=== PATIENT | male | born 1960 | race Caucasian/White ===

== ENCOUNTER → 2021-07-16 11:35 | Outpatient (BNVA) | payer MEDICARE, SELFPAY | PROVIDERS: Visit Provider Family Medicine | DX: E78.5 Hyperlipidemia, unspecified (principal); E11.40 Type 2 diabetes mellitus with diabetic neuropathy, unspecified; G25.81 Restless legs syndrome; M25.511 Pain in right shoulder; M25.512 Pain in left shoulder; I10 Essential (primary) hypertension; M54.16 Radiculopathy, lumbar region | CPT/HCPCS: 80053; 80061; 83036; 83735 ==

== ENCOUNTER → 2021-10-06 10:23 | Outpatient (BNVA) | payer MEDICARE, SELFPAY | PROVIDERS: PCP Family Medicine; Visit Provider Family Medicine | DX: E11.40 Type 2 diabetes mellitus with diabetic neuropathy, unspecified (principal); G25.81 Restless legs syndrome; E11.42 Type 2 diabetes mellitus with diabetic polyneuropathy; E78.2 Mixed hyperlipidemia; M54.16 Radiculopathy, lumbar region; H26.9 Unspecified cataract | CPT/HCPCS: 80053; 80061; 83036 ==

== ENCOUNTER → 2022-01-13 09:26 | Outpatient (BNVA) | payer MEDICARE, SELFPAY | PROVIDERS: PCP Family Medicine; Visit Provider Family Medicine | DX: E11.9 Type 2 diabetes mellitus without complications (principal); R25.2 Cramp and spasm; G25.81 Restless legs syndrome; E11.40 Type 2 diabetes mellitus with diabetic neuropathy, unspecified; M54.16 Radiculopathy, lumbar region; M25.511 Pain in right shoulder; M25.512 Pain in left shoulder; E11.42 Type 2 diabetes mellitus with diabetic polyneuropathy | CPT/HCPCS: 73030; 80048; 83036 ==

== ENCOUNTER → 2022-02-25 09:31 | Outpatient (BNVA) | payer MEDICARE, SELFPAY | PROVIDERS: PCP Family Medicine; Referring Provider Family Medicine; Visit Provider Orthopaedic Surgery | DX: M25.511 Pain in right shoulder (principal); M25.512 Pain in left shoulder | CPT/HCPCS: 99204 ==

== ENCOUNTER 2022-04-08 16:25 | Outpatient (CLI) | payer MEDICARE, SELFPAY ==
--- NOTE | 2022-04-08 16:45 | MR_ITS ---
WS: [id number] MRI RIGHT SHOULDER HISTORY: pain COMPARISON: Radiograph 01/13/2022 TECHNIQUE: Multiplanar sequences of the shoulder joint are submitted. Moderate AC joint arthritis. AC joint is narrowed with osteophytes encroaching upon the supraspinatus myotendinous insertion. Osteophytes are deforming small insertion site tear supraspinatus the muscle and tendon. There is only a small amount of edema along the AC ligament. No significant subacromial impingement. Biceps tendon is in the bicipital groove. No os acromion. Mild narrowing of the glenohumeral joint. There is a small amount of edema in the supraspinatus muscl e where the clavicular osteophyte causes mild encroachment. There is additional very small partial te ar involving the insertion site of the supraspinatus. Moderate tendinopathy distal supraspinatus tend on but no additional tears. Normal infraspinatus tendon. Subscapularis tendon is intact but there is coracohumeral encroachment and mild tendinopathy in the distal subscapularis. Well-circumscribed osseous lesion measuring 14 mm. Probably an enchondroma. No adjacent fluid or antoinette a. No labral tear identified. MR/MR shoulder RT wo con* [id number] IMPRESSION: 1. Moderate AC joint arthritis. Mild AC joint encroachment upon the myotendino us region of the supraspinatus. 2. Small focal insertion site tear supraspinatus tendon with additional moder ate tendinopathy in the more proximal tendon. 3. Moderate narrowing of the coracohumeral interval encroaching upon the subsc apularis tendon with tendinopathy.
== END 2022-04-08 16:26 | disposition home or self-care (01) ==
PROVIDERS: PCP Family Medicine; Visit Provider Orthopaedic Surgery
DX: M12.819 Other specific arthropathies, not elsewhere classified, unspecified shoulder (principal)
CPT/HCPCS: 73221

== ENCOUNTER → 2022-04-14 15:25 | Outpatient (BNVA) | payer MEDICARE, SELFPAY | PROVIDERS: PCP Family Medicine; Visit Provider Orthopaedic Surgery | DX: E11.40 Type 2 diabetes mellitus with diabetic neuropathy, unspecified (principal); M75.01 Adhesive capsulitis of right shoulder; M54.16 Radiculopathy, lumbar region; E11.9 Type 2 diabetes mellitus without complications; M25.511 Pain in right shoulder; M25.512 Pain in left shoulder; H60.92 Unspecified otitis externa, left ear; G25.81 Restless legs syndrome; E11.42 Type 2 diabetes mellitus with diabetic polyneuropathy; H65.92 Unspecified nonsuppurative otitis media, left ear; H81.22 Vestibular neuronitis, left ear; Z79.84 Long term (current) use of oral hypoglycemic drugs | CPT/HCPCS: 83036; 99213 ==

== ENCOUNTER 2022-04-21 06:00 | Outpatient (RCR) | payer MEDICARE, SELFPAY | END 2022-04-28 23:59 | disposition home or self-care (01) | LOC: MPT 06:00 | PROVIDERS: PCP Family Medicine; Visit Provider Orthopaedic Surgery | DX: M75.01 Adhesive capsulitis of right shoulder (principal) | CPT/HCPCS: 97161 ==

== ENCOUNTER → 2022-07-14 09:44 | Outpatient (BNVA) | payer MEDICARE, SELFPAY | PROVIDERS: PCP Family Medicine; Visit Provider Family Medicine | DX: E11.42 Type 2 diabetes mellitus with diabetic polyneuropathy (principal); M25.511 Pain in right shoulder; M25.512 Pain in left shoulder; M54.16 Radiculopathy, lumbar region; G25.81 Restless legs syndrome | CPT/HCPCS: 80048; 83036 ==

== ENCOUNTER → 2022-09-11 12:56 | Outpatient (BNVA) | payer MEDICARE, SELFPAY | PROVIDERS: PCP Family Medicine; Visit Provider Surgery | DX: R13.10 Dysphagia, unspecified (principal); Z12.11 Encounter for screening for malignant neoplasm of colon; Z86.010 Personal history of colon polyps | CPT/HCPCS: 99024; 99203 ==

== ENCOUNTER 2022-10-09 07:23 | Day surgery (SDC) | payer MEDICARE, SELFPAY ==
[2022-10-07 12:32] VITALS: BMI 23.9
[2022-10-09 07:44] VITALS: BP 181/107; PULSE 66; RESP 16; TEMP 36.4; O2SAT 98
--- NOTE | 2022-10-09 07:57 | P.ANESASSM_ITS ---
Pre-Anesthetic Assessment Height/Weight: Height 1.78 m Weight 75.75 kg Temp Pulse Resp BP Pulse Ox O2 Del Method 97.5 F L 66 16 181/107 98 Room Air 10/09/22 07:44 10/09/22 07:44 10/09/22 07:44 10/09/22 07:44 10/09/22 07:44 10/09/22 07:44 Operation Date: 10/09/22 08:30 Proposed Procedures p 27672 egd w/balloon dial z86.010,z12.11,r13.10(Not Applicable) - Gaurav Bright DO Familial anesthetic complications: None Was Beta Martha taken within 24 hours: N/A Was Clonidine taken within 24 hours: N/A Last intake: Intake Last Liquid Date 10/08/22 Social No alcohol and No tobacco Exam alert, oriented x 3, clear to auscultation bilaterally and regular rate & rhythm Airway Mallampati: Class I Dentition: false CV/HEM Coronary Artery Disease (stent > 1year ago) Achievement of > 4 METS limited by back and hip pain Metabolic Diabetes Mellitus Anesthetic Plan ASA status: 3 Anesthesia: MAC Risk of > 500 ml blood loss (7ml/kg in children): No Medications/Allergies Home Medications Medication Instructions Recorded Confirmed Last Taken Type cbd cream 1 applic topical PRN PRN Pain 07/16/21 10/08/22 10/07/22 History lancets #100 ea 07/16/21 10/07/22 Unknown Rx blood sugar diagnostic (Blood #50 ea 04/14/22 10/07/22 Unknown Rx Glucose Test strips) blood-glucose meter (Blood Glucose #1 ea 04/14/22 10/07/22 Unknown Rx Monitoring kit) atorvastatin 10 mg tablet 10 mg PO DAILY 30 days #30 tabs 07/14/22 10/09/22 10/07/22 Rx baclofen 10 mg tablet 10 mg PO .at bedtime PRN muscle 07/14/22 10/09/22 10/07/22 Rx cramps 30 days #30 tabs diclofenac sodium 75 mg 75 mg PO BID PRN pain 30 days #60 07/14/22 10/07/22 10/07/22 Rx tablet,delayed release tabs oxycodone-acetaminophen 5 mg-325 1 tab PO DAILY PRN pain 30 days 07/14/22 10/09/22 10/08/22 Rx mg tablet #30 tabs pregabalin 100 mg capsule (Lyrica) 100 mg PO BID 30 days #60 caps 07/14/2210/07/22 Rx ropinirole 1 mg tablet 1 mg PO .at bedtime 30 days #30 07/14/22 10/07/22 10/07/22 Rx tabs dapagliflozin 5 mg tablet (Farxiga) 5 mg PO DAILY 30 days #30 tabs 08/24/22 10/07/22 10/07/22 Rx glipizide 10 mg tablet, extended 10 mg PO DAILY 10/07/22 10/09/22 10/08/22 History release 24 hr metformin 500 mg tablet,extended 1,500 mg PO DAILY 10/07/22 10/09/22 10/08/22 History release 24 hr Allergies Allergy/AdvReac Type Severity Reaction Status Date / Time No Known Allergies Allergy Verified 10/07/22 12:34 [facility] Anesthesia Medical History (Updated 09/11/22 @ 14:09 by Gaurav Bright DO) Fracture of third cervical vertebra Fracture, scapula Hx of seizure disorder Surgical History (Updated 09/11/22 @ 14:09 by Gaurav Bright DO) Hx of colonoscopy less than 10 years, polyps were found Hx of hernia repair Social History Smoking and tobacco status: former smoker Alcohol intake: current Alcohol intake frequency: other Alcohol type: beer Substance/Drug Use: current Substance/Drug use frequency: daily service: Yes status: Retired branch: [employer] Anesthesia Cardiac Studies: No Data to Display
[2022-10-09] MEDS: sodium chloride 0.9% 1,000 ML 30 ML IV (08:00)
[2022-10-09] MEDS: insulin regular-human 10 UNIT in SYRINGE 1 EACH IVP (08:25)
[2022-10-09 08:30] LABS: Glucose Point of Care 304 mg/dL (70-110)
--- NOTE | 2022-10-09 08:38 | W.PM.OPSUD ---
Surgery/Procedure H&P Update DATE OF PROCEDURE: October 09, 2022 DATE H&P PERFORMED: 09/11/22 H&P UPDATE INFORMATION: I have reviewed H&P completed within last 30 days, I have examined patient prior to procedure and Changes to prior documentation as noted here CHANGES TO PREVIOUS DOCUMENTATION: EGD with possible balloon dilation and colonoscopy will be performed PLANNED PROCEDURE: Operation Date: 10/09/22 08:30 Proposed Procedures p [id number] egd w/balloon dial z86.010,z12.11,r13.10(Not Applicable) - Gaurav Bright DO
--- NOTE | 2022-10-09 08:53 | SUR.OPER ---
Balloon dilation 18, 19, 20
[2022-10-09 09:02] VITALS: BP 90/58; PULSE 55; RESP 20; TEMP 36.4; O2SAT 97
[2022-10-09 09:20] VITALS: BP 70/53; PULSE 57; RESP 18; O2SAT 97
--- NOTE | 2022-10-09 09:30 | ANE.PACU2 ---
Inpatient post-anesthesia follow up: Airway intact: Yes Vital signs: Temperature 97.5 F Pulse Rate 63 Respiratory Rate 16 Blood Pressure 112/90 Pulse Oximetry 97 Oxygen Delivery Me thod Room Air Oxygen Flow Rate 3 Fraction of Inspir ed Oxygen Hydration adequate: Yes Nausea and vomiting: No Pain level: 1 Mental status: Baseline
[2022-10-09 09:35] VITALS: BP 112/64; PULSE 60; RESP 16; O2SAT 98
[2022-10-09 09:39] LABS: Glucose Point of Care 198 mg/dL (70-110)
[2022-10-09 09:51] VITALS: BP 112/90; PULSE 63; RESP 16; O2SAT 97
== END 2022-10-09 09:59 | disposition home or self-care (01) ==
PROVIDERS: PCP Family Medicine; Visit Provider Surgery
DX: R13.10 Dysphagia, unspecified (principal); I25.10 Atherosclerotic heart disease of native coronary artery without angina pectoris; Z95.5 Presence of coronary angioplasty implant and graft; E11.9 Type 2 diabetes mellitus without complications; Z79.84 Long term (current) use of oral hypoglycemic drugs; Z79.891 Long term (current) use of opiate analgesic; Z87.891 Personal history of nicotine dependence; Z53.20 Procedure and treatment not carried out because of patient's decision for unspecified reasons
CPT/HCPCS: 36416; 43239; 43249; 82962; 88305; 88342; J1815; J2704; J7030

== ENCOUNTER → 2022-10-13 08:48 | Outpatient (BNVA) | payer MEDICARE, SELFPAY | PROVIDERS: PCP Family Medicine; Visit Provider Family Medicine | DX: Z00.00 Encounter for general adult medical examination without abnormal findings (principal); E11.9 Type 2 diabetes mellitus without complications; Z12.5 Encounter for screening for malignant neoplasm of prostate; Z12.2 Encounter for screening for malignant neoplasm of respiratory organs; Z87.891 Personal history of nicotine dependence; Z71.89 Other specified counseling; Z53.20 Procedure and treatment not carried out because of patient's decision for unspecified reasons; Z28.21 Immunization not carried out because of patient refusal; E78.2 Mixed hyperlipidemia; M54.16 Radiculopathy, lumbar region; R13.10 Dysphagia, unspecified; Z91.199 Patient's noncompliance with other medical treatment and regimen due to unspecified reason | CPT/HCPCS: 80053; 80061; 83036; G0103 ==

== ENCOUNTER → 2022-10-30 15:44 | Outpatient (BNVA) | payer MEDICARE, SELFPAY | PROVIDERS: PCP Family Medicine; Visit Provider Surgery | DX: Z09 Encounter for follow-up examination after completed treatment for conditions other than malignant neoplasm (principal) | CPT/HCPCS: 99212 ==

== ENCOUNTER → 2023-03-10 13:41 | Outpatient (BNVA) | payer MEDICARE, SELFPAY | PROVIDERS: PCP Family Medicine; Visit Provider Family Medicine | DX: E11.40 Type 2 diabetes mellitus with diabetic neuropathy, unspecified (principal); I10 Essential (primary) hypertension; M54.16 Radiculopathy, lumbar region; M25.511 Pain in right shoulder; M25.512 Pain in left shoulder; G89.4 Chronic pain syndrome; F19.20 Other psychoactive substance dependence, uncomplicated; E11.42 Type 2 diabetes mellitus with diabetic polyneuropathy; G89.29 Other chronic pain; M54.12 Radiculopathy, cervical region | CPT/HCPCS: 80048; 83036 ==

== ENCOUNTER 2023-05-06 09:24 | Outpatient (CLI) | payer MEDICARE, SELFPAY ==
--- NOTE | 2023-05-06 09:28 | MR_ITS ---
WS: [id number] MRI CERVICAL SPINE NONCONTRAST HISTORY: RADICULOPATHY, CERVICAL REGION/SPONDYLOSIS COMPARISON: None available. Technique: Multiplanar, multisequence noncontrast imaging of the cervical spine. Normal cervical alignment. Mild disc space narrowing and desiccation. Osteophytosis at all levels. No acute fracture. No marrow edema. Signal within the cervical cord is normal. Visualized posterior fossa is unremarkable. Craniocervical junction, C1 and C2 relationship, odontoid process and soft tissues are normal. C2-C3: Mild osteophytosis. Mild motion artifact. No stenosis is evident. C3-C4: Mild osteophytic ridging, annular disc bulging and facet arthritis. Mild central and moderate bilateral foraminal stenosis. C4-C5: Mild diffuse annular disc bulging with osteophytic ridging and facet arthritis. Small central disc protrusion. Mild central and bilateral foraminal stenosis. C5-C6: Mild diffuse annular disc bulging with osteophytic ridging and facet arthritis. Mild central a nd bilateral foraminal stenosis. C6-C7: Osteophytic ridging and mild disc bulging. Mild facet arthritis. Very mild central and foramin al stenosis. C7-T1: Mild osteophytic ridging. No stenosis. Paraspinal soft tissue are normal. IMPRESSION: 1. Multilevel mild to moderate cervical spondylosis. 2. Quality is suboptimal by motion artifact. 3. Mild central and bilateral foraminal stenosis from C3-4 through C6-7. No high-grade central steno sis. Foraminal stenosis at C3-4 is moderate. 4. Additional small central disc protrusion at C4-5 contributing to the stenosis. 5. Facet joint arthropathy throughout the cervical spine. No acute fracture.
== END 2023-05-06 09:25 | disposition home or self-care (01) ==
LOC: RAD 09:24
PROVIDERS: PCP Family Medicine; Visit Provider Registered Nurse
DX: M47.22 Other spondylosis with radiculopathy, cervical region (principal); M50.30 Other cervical disc degeneration, unspecified cervical region; M48.02 Spinal stenosis, cervical region
CPT/HCPCS: 72141

== ENCOUNTER → 2023-07-14 09:02 | Outpatient (BNVA) | payer MEDICARE, SELFPAY | PROVIDERS: PCP Family Medicine; Visit Provider Family Medicine | DX: E11.40 Type 2 diabetes mellitus with diabetic neuropathy, unspecified (principal); K21.9 Gastro-esophageal reflux disease without esophagitis; E11.9 Type 2 diabetes mellitus without complications; E11.42 Type 2 diabetes mellitus with diabetic polyneuropathy; M25.511 Pain in right shoulder; M25.512 Pain in left shoulder; R25.2 Cramp and spasm; M54.16 Radiculopathy, lumbar region; E78.2 Mixed hyperlipidemia | CPT/HCPCS: 80053; 80061; 83036; 83721; 85025 ==

== ENCOUNTER → 2023-10-12 11:15 | Outpatient (BNVA) | payer MEDICARE, SELFPAY | PROVIDERS: PCP Family Medicine; Visit Provider Family Medicine | DX: E11.42 Type 2 diabetes mellitus with diabetic polyneuropathy (principal) | CPT/HCPCS: 80053; 83036 ==

== ENCOUNTER 2023-11-29 11:11 | Observation (INO) | payer MEDICARE, SELFPAY ==
[2023-11-29] VITALS (7 sets, daily range): BP systolic 128–154; BP diastolic 71–107; PULSE 63–90; RESP 15–18; TEMP 36.4–36.8; O2SAT 92–98
--- NOTE | 2023-11-29 11:32 | CT_ITS ---
WS: [id number] CT ANGIOGRAM CEREBRAL AND CAROTID ARTERIES HISTORY: cva TECHNIQUE: CT angiogram is performed of the carotid and cerebral arteries. During arterial injection imaging is obtained from the skull vertex to the aortic arch in 1.25 mm imaging. Coronal and sagittal reformats are submitted. Additional multi planar reformats of the carotid and cerebral arteries are submitted, MIP imaging also reviewed. NASCET criteria utilized. [facility] at least one of these dose optimization techniques: automated exposure control; mA and/or kV adjust ment per patient size (includes targeted exams where dose is matched to clinical indication); or iter ative reconstruction. CONTRAST: Omnipaque 350; 100 mL IV. DLP: 562.62 mGy.cm COMPARISON: None available. Carotid Angiogram: Right carotid: Common carotid artery: Small amount calcified plaque at the origin of the RIGHT common carotid artery with mild stenosis suspected. Artifact from the contrast obscuring quantification of the stenosis. R emaining cervical carotid arteries patent. Increasing plaque towards the bifurcation. 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 External carotid artery: Patent. Left carotid: Common carotid artery: Small amount of plaque at the origin of the LEFT common carotid artery. Remain ing cervical carotid arteries intact. Increasing plaque towards the bifurcation. Internal carotid artery: There is a mixture of calcified plaque and intimal thickening at the bifurc ation. Proximal LEFT ICA is dilated to 1.3 cm. There is a mixture of calcified plaque and a large johnny unt of intraluminal thrombus. High-grade stenosis involving the proximal LEFT ICA with small plaque u lcerations. LEFT increasing thrombus and stenosis at the skull base. Nearly occluded LEFT ICA at the skull base. Additional narrowing through the cavernous carotid artery. External carotid artery: Patent. Right vertebral artery: Small amount of plaque at the origin. Increasing plaque through the foramen m agnum with moderate stenosis. Left vertebral artery: High-grade stenosis at the origin of the LEFT vertebral artery. Very tiny allyssa kofi LEFT vertebral artery with complete occlusion distally. Subclavian arteries: Thrombus and luminal irregularity involving the subclavian arteries. The arterie s appear to be intact. Upper thorax: Centrilobular emphysema. Frothy secretions in the trachea. Extensive atherosclerotic pl aque through the aortic arch. Soft plaque with erosions at the arch. Thyroid gland: Normal. Osseous structures: Advanced cervical spondylosis. CEREBRAL ANGIOGRAM: Intracranial vertebral arteries: Distal RIGHT vertebral artery is nearly occluded just prior to the b ifurcation. LEFT vertebral artery distally is completely occluded. Basilar artery: Patent. Intracranial Internal carotid arteries: Completely occluded RIGHT cervical carotid artery with recons titution noted in the supraclinoid carotid artery via an intact [place]. Beyond the skull ba se LEFT ICA returns to a more normal caliber but there is plaque and multifocal areas of luminal sten osis. Dense calcification through the cavernous carotid. Middle cerebral arteries: RIGHT middle cerebral artery is reconstituted via an intact [place] s. Small caliber RIGHT MCA. There is a paucity of vessels in the distal MCA territory at the site of the subacute infarct. Mild atherosclerosis LEFT M1 segment but intact. Anterior cerebral arteries and ACOM: There is narrowing and a small amount of plaque involving the RI GHT M1 segment with a stenosis involving the junction of the RIGHT MCA. Posterior cerebral arteries and PCOM's: Very small caliber bilateral posterior cerebral arteries. Sma ll caliber posterior communicating arteries. RIGHT P2 and P1 segments are very small caliber. Dural venous sinuses are normally enhancing. Mastoid air cells: Normal. Paranasal sinuses: Normal. Calvarium: Normal. CT/CT angio headneck* [id number] IMPRESSION: 1. 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 Reconstitutes in the supraclinoid carotid artery. 2. Increasing plaque and dilatation of the proximal LEFT ICA, dilated to 1.3 c m. High-grade stenosis proximal LEFT ICA with plaque and ulcerations. Stenosis greater than 70%. 3. LEFT ICA is nearly completely occluded at the skull base. Additional high-g rade stenosis through the cavernous sinus. 4. Moderate stenosis distal RIGHT vertebral artery beyond the foramen magnum. 5. High-grade stenosis origin of the LEFT vertebral artery. Distal LEFT verteb ral artery is completely occluded. 6. RIGHT MCA is patent due to an intact [place]. There is a significa nt stenosis involving the RIGHT A1 segment with the RIGHT MCA. RIGHT posterior communicating artery is still patent. 7. Paucity of vessels in the distal RIGHT MCA territory at the site of subacut e infarct. This is beyond the M2 segment. Abrupt termination of the distal MCA artery best seen on the MIP imaging. 8. Very small caliber posterior cerebral arteries. 9. Irregular plaque with ulcerations involving the aortic arch.
--- NOTE | 2023-11-29 11:32 | CT_ITS ---
WS: [id number] CT HEAD NONCONTRAST HISTORY: cva TECHNIQUE: Contiguous axial imaging performed through the brain in 2.5 mm imaging. Bone and soft tiss ue windows. Sagittal and coronal reformats reviewed. All CT scans at [facility] use at least one of these dose optimization techniques: automated exposure control; mA and/or kV adjustment per pa tient size (includes targeted exams where dose is matched to clinical indication); or iterative recon struction. DLP: 1125.38 mGy.cm COMPARISON: None available. No acute intracranial hemorrhage. Focal area of decreased attenuation in the RIGHT centrum semiovale and thompson radiata may be a subacute infarct. Otherwise there is mild atrophy and small vessel diseas e. No atrophy or prior infarcts or herniation. Posterior fossa is negative. Ventricles: Normal size with no hydrocephalus. No inferior displacement of the cerebellar tonsils. Paranasal sinuses: As visualized are clear. Mastoid air cells: Well pneumatized. Calvarium and scalp: Skull is intact with no soft tissue edema or swelling. Extensive calcified plaque visualized in the distal vertebral and intracranial carotid arteries. CT/CT head wo con* [id number] IMPRESSION: 1. No acute intracranial hemorrhage or mass effect. 2. Probable subacute infarct RIGHT centrum semiovale/thompson radiata. 3. Extensive atherosclerotic plaque in the distal vertebral and intracranial c arotid arteries.
--- NOTE | 2023-11-29 11:32 | XR_ITS ---
WS: [id number] Exam: XR chest 1V portable [id number] Date/Time of Exam: 11/29/2023 11:39 AM Reason For Exam: cva No priors. The lungs are fully inflated and clear. Normal cardiomediastinal silhouette. No pleural effusions. Re gional bony structures are intact. Several old right-sided rib fractures noted. XR/XR chest 1V portable [id number] IMPRESSION: 1. No acute cardiopulmonary finding.
--- NOTE | 2023-11-29 11:33 | ED_ITS ---
HPI - Altered Mental Status 2 General: Chief Complaint: Altered Mental Status Stated Complaint: stroke like symptoms Time Seen by Provider: 11/29/23 11:23 Source: patient Mode of arrival: ambulatory Limitations: no limitations History of Present Illness: 63-year-old male states for the last 3 d ays has had strokelike symptoms. He states that he had left-sided weakness some slurred speech confusion family states he has not really been able to take care of himself. She does have some left-sided facial droop as well no history of stroke in the past. Related Data Home Medications Medication Instructions Recorded Confirmed pen needle, diabetic 32 gauge x 11/29/23 11/29/2332 (BD Ultra-Fine Brigit Pen Needle) Previous Rx's Medication Instructions Recorded blood-glucose meter (Blood Glucose #1 ea 04/14/22 Monitoring kit) alcohol swabs 1 pad topical TID PRN as needed to 10/13/22 check blood sugar 30 days #100 ea insulin syringe-needle U-100 0.5 #100 ea 07/14/23 mL 29 gauge x 1/2 (BD Insulin Syringe) lancets (Accu-Chek Softclix #100 ea 08/28/23 Lancets) blood sugar diagnostic (Accu-Chek #50 strips 09/14/23 Guide test strips) baclofen 10 mg tablet 10 mg PO .at bedtime PRN muscle 10/12/23 cramps 30 days #30 tabs diclofenac sodium 75 mg 75 mg PO BID PRN pain 30 days #60 10/12/23 tablet,delayed release tabs glipizide 10 mg tablet, extended 10 mg PO DAILY 90 days #90 tabs 10/12/23 release 24 hr insulin aspart U-100 100 unit/mL 5 unit (0.05 mL) SUBCUT TID #15 mL 10/12/23 (3 mL) subcutaneous pen (Novolog FlexPen U-100 Insulin aspart) insulin glargine 100 unit/mL (3 50 unit (0.5 mL) SUBCUT DAILY 30 10/12/23 mL) subcutaneous pen (Lantus days #15 mL Solostar U-100 Insulin) metformin 500 mg tablet,extended 1,500 mg (3 x 500 mg) PO DAILY 90 10/12/23 release 24 hr days #270 tabs pregabalin 100 mg capsule 100 mg PO BID 30 days #60 caps 10/12/23 oxycodone-acetaminophen 5 mg-325 1 tab PO DAILY PRN pain 30 days 10/14/23 mg tablet #30 tabs pen needle, diabetic 32 gauge x #100 ea 11/11/2303/04 (TechLITE Pen Needle) Allergies Allergy/AdvReac Type Severity Reaction Status Date / Time No Known Allergies Allergy Verified 10/12/23 10:41 Review of Systems 2 Const: Denies: fever(s), chills, body aches or change in appetite Eyes: Denies: eye discomfort ENMT: Denies: throat pain or dental pain Card: Denies: chest pain Resp: Denies: dyspnea GI: Denies: abdominal pain, nausea, vomiting or diarrhea Musc: Denies: neck pain or back pain Skin/Breast: Denies: rash Neuro: Reports: weakness in extremities, difficulty walking, confusion and Slurred speech present; Denies: headache(s) PFSH ED 2 PFSH: Medical History Hx of seizure disorder Fracture, scapula Fracture of third cervical vertebra Surgical History Hx of colonoscopy less than 10 years, polyps were found Hx of hernia repair Social History Smoking and tobacco/nicotine status: former use of tobacco/nicotine Alcohol intake: current Alcohol intake frequency: other Alcohol type: beer Substance/Drug Use: current Substance/Drug use frequency: daily service: Yes status: Retired branch: [employer] Physical Exam 2 Const: COMMON NORMALS: patient oriented x3 HENMT: COMMON NORMALS: normocephalic and atraumatic HEAD & SCALP: n ormocephalic and atraumatic Eye: COMMON NORMALS: Equal, round and reactive pupils present and EOMs intact bilaterally PUPIL: Yes Equal, round and reactive pupils present Neck/C-Spine: COMMON NORMALS: full ROM and supple Chest: COMMONS NORMALS: normal inspection of the chest Resp: COMMON NORMALS: normal respiratory effort Cardio: COMMON NORMALS: regular rate, regular rhythm and No murmurs present (Cardio) RATE: regular rate RHYTHM: regular rhythm Extremity: COMMON NORMALS: normal to inspection and full ROM Neuro: COMMON NORMALS: patient oriented x3 OTHER: Some left-sided weakness with left-sided facial droop Psych: COMMON NORMALS: mental status grossly normal, Normal thought process present and cooperative THOUGHT PROCESS: Normal thought process present Skin: COMMON NORMALS: no rashes or lesions noted and no wounds GENERAL SKIN EXAM: no rashes or lesions noted Course 2 Vital Signs: Vital signs: Vital Signs Temperature 98.1 F 11/29/23 11:24 Pulse Rate 73 11/29/23 11:50 Respiratory Rate 16 11/29/23 11:50 Blood Pressure 143/93 11/29/23 11:50 Pulse Oximetry 93 11/29/23 11:50 Oxygen Delivery Me thod Room Air 11/29/23 11:50 MDM - Altered Mental Status Medical Decision Making Patient presents here with stroke likely on Wednesday. Its on his last known normal was he not a thrombectomy or a lytic candidate due to time I spoke to the hospitalist will admit at this time. Medical Records I reviewed the patient's medical records. Lab Data I reviewed the patient's lab results. 11/29/23 12:04 11/29/23 12:04 Radiology Impressions Chest X-Ray 11/29/23 11:32 IMPRESSION: 1. No acute cardiopulmonary finding. Head CT 11/29/23 11:32 IMPRESSION: 1. No acute intracranial hemorrhage or mass effect. 2. Probable subacute infarct RIGHT centrum semiovale/thompson radiata. 3. Extensive atherosclerotic plaque in the distal vertebral and intracranial carotid arteries. Head/Neck CTA 11/29/23 11:32 IMPRESSION: 1. 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 Reconstitutes in the supraclinoid carotid artery. 2. Increasing plaque and dilatation of the proximal LEFT ICA, dilated to 1.3 cm. High-grade stenosis proximal LEFT ICA with plaque and ulcerations. Stenosis greater than 70%. 3. LEFT ICA is nearly completely occluded at the skull base. Additional high- grade stenosis through the cavernous sinus. 4. Moderate stenosis distal RIGHT vertebral artery beyond the foramen magnum. 5. High-grade stenosis origin of the LEFT vertebral artery. Distal LEFT vertebral artery is completely occluded. 6. RIGHT MCA is patent due to an intact native of [place]. There is a significant stenosis involving the RIGHT A1 segment with the RIGHT MCA. RIGHT posterior communicating artery is still patent. 7. Paucity of vessels in the distal RIGHT MCA territory at the site of subacute infarct. This is beyond the M2 segment. Abrupt termination of the distal MCA artery best seen on the MIP imaging. 8. Very small caliber posterior cerebral arteries. 9. Irregular plaque with ulcerations involving the aortic arch. Laboratory Results WBC 7.12 10^3/uL (3.29-11.43) 11/29/23 12:04 RBC 5.13 10^6/uL (3.85-5.65) 11/29/23 12:04 Hgb 14.90 g/dL (11.27-16.99) 11/29/23 12:04 Hct 44.6 % (37-53) 11/29/23 12:04 MCV 86.9 fl (82-101) 11/29/23 12:04 MCH 29.0 pg (27-33) 11/29/23 12:04 MCHC 33.4 g/dL (30-55) 11/29/23 12:04 RDW 13.6 % (12.1-15.1) 11/29/23 12:04 Plt Count 193 10^3/cmm (157-399) 11/29/23 12:04 MPV 10.7 fL (7.4-10.4) H 11/29/23 12:04 Neut % (Auto) 64.5 % 11/29/23 12:04 Lymph % (Auto) 25.8 % 11/29/23 12:04 Hendry % (Auto) 7.9 % 11/29/23 12:04 Eos % (Auto) 1.0 % 11/29/23 12:04 Baso % (Auto) 0.4 % 11/29/23 12:04 Neut # (Auto) 4.59 10^3/uL (1.8-7.7) 11/29/23 12:04 Lymph # (Auto) 1.8 10^3/uL (0.8-4.8) 11/29/23 12:04 Hendry # (Auto) 0.6 10^3/uL (0.2-0.9) 11/29/23 12:04 Eos # (Auto) 0.1 10^3/uL (0.0-0.8) 11/29/23 12:04 Baso # (Auto) 0.0 10^3/uL (0.0-0.1) 11/29/23 12:04 Nucleated RBC % (auto) 0 % 11/29/23 12:04 Nucleated RBCs # 0.0 /100WBC 11/29/23 12:04 PT 14.00 SECONDS (12.1-14.9) 11/29/23 12:04 INR 1.04 (0.8-1.2) 11/29/23 12:04 Sodium 137 mmol/L (136-145) 11/29/23 12:04 Potassium 4.4 mmol/L (3.5-5.1) 11/29/23 12:04 Chloride 102 mmol/L (98-107) 11/29/23 12:04 Carbon Dioxide 25 mmol/L (22-29) 11/29/23 12:04 Anion Gap 14.4 (5-19) 11/29/23 12:04 BUN 22 mg/dL (8-23) 11/29/23 12:04 Creatinine 0.9 mg/dL (0.7-1.2) 11/29/23 12:04 GFR Calculation 85.2 mL/min (90-130) L 11/29/23 12:04 Glucose 290 mg/dL (65-115) H 11/29/23 12:04 Calculated Osmolality 298 mOsm/kg (285-295) H 11/29/23 12:04 Calcium 8.7 mg/dL (8.5-10.5) 11/29/23 12:04 Total Bilirubin 0.4 mg/dL (0.15-1.2) 11/29/23 12:04 AST 11 U/L (0-40) 11/29/23 12:04 ALT 13 U/L (0-41) 11/29/23 12:04 Alkaline Phosphatase 67 U/L (40-130) 11/29/23 12:04 Total Protein 7.3 g/dL (6.6-8.7) 11/29/23 12:04 Albumin 4.1 g/dL (3.5-5.2) 11/29/23 12:04 Globulin 3.2 g/dL (1.3-4.6) 11/29/23 12:04 All radiology interpretation(s) finalized by discharge EKG Data EKG 1: I personally reviewed and interpreted this EKG as follows: EKG interpretation date: 11/29/23 EKG interpretation time: 11:47 Interpretation: nsr hr [address] elevation qrs 97 qtc 389 Discharge Plan Discharge Patient Disposition: Admitted As Inpatient Clinical Impression: CVA (cerebral vascular accident) Condition: Stable Prescriptions: No Action (DME) insulin syringe-needle U-100 [BD Insulin Syringe] 0.5 mL 29 gauge x 1/2 syringe See Rx Instructions .Route Qty: 100 5RF Rx Instructions: Use with insulin twice daily pregabalin 100 mg capsule 100 mg PO BID 30 Days Qty: 60 5RF baclofen 10 mg tablet 10 mg PO .at bedtime PRN (Reason: muscle cramps) 30 Days Qty: 30 6RF diclofenac sodium 75 mg tablet,delayed release (DR/EC) 75 mg PO BID PRN (Reason: pain) 30 Days Qty: 60 6RF Rx Instructions: WITH FOOD; do not take with IBU/ALEVE glipizide 10 mg tablet extended release 24hr 10 mg PO DAILY 90 Days Qty: 90 2RF insulin glargine [Lantus Solostar U-100 Insulin] 100 unit/mL (3 mL) insulin pen 50 unit SUBCUT DAILY 30 Days Qty: 15 6RF Rx Instructions: 340B insulin aspart U-100 [Novolog FlexPen U-100 Insulin] 100 unit/mL (3 mL) insulin pen 5 unit SUBCUT TID Qty: 15 6RF Rx Instructions: 340B metformin 500 mg tablet extended release 24 hr 1,500 mg PO DAILY 90 Days Qty: 270 2RF (DME) blood-glucose meter [Blood Glucose Monitoring] Kit See Rx Instructions .ROUTE .MEDSUPPLY Qty: 1 0RF Rx Instructions: Brand/type per insurance coverage alcohol swabs Pads, Medicated 1 pad topical TID PRN (Reason: as needed to check blood sugar) 30 Days Qty: 100 11RF (DME) lancets [Accu-Chek Softclix Lancets] Misc See Rx Instructions .ROUTE .COMPLEX Qty: 100 11RF Dose Instruction: USE TO TEST BLOOD GLUCOSE TWICE A DAY Rx Instructions: USE TO TEST BLOOD GLUCOSE TWICE A DAY (DME) Accu-Chek Guide test strips Strip See Rx Instructions .ROUTE .COMPLEX Qty: 50 11RF Dose Instruction: USE TO TEST BLOOD GLUCOSE TWICE A DAY Rx Instructions: USE TO TEST BLOOD GLUCOSE TWICE A DAY oxycodone-acetaminophen 5-325 mg tablet 1 tab PO DAILY PRN (Reason: pain) 30 Days Qty: 30 0RF (DME) pen needle, diabetic [TechLITE Pen Needle] 32 gauge x 1/4 needle See Rx Instructions .ROUTE .COMPLEX Qty: 100 2RF Dose Instruction: USE WITH INSULIN PEN TO ADMINISTER INSULIN DIRECTED BY DOCTOR TWICE DAILY Rx Instructions: USE WITH INSULIN PEN TO ADMINISTER INSULIN DIRECTED BY DOCTOR TWICE DAILY (DME) BD Ultra-Fine Birgit Pen Needle 32 gauge x 5/32 needle MISCELLANEOUS Referrals: Gale Ocasio MD [Primary Care Provider] - Patient Instructions: Altered Mental Status (ED) Coding Level of Care Code 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
--- NOTE | 2023-11-29 11:47 | ECG_ITS ---
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 Measurements Intervals [place] Rate: 70 P: 37 WY: 165 QRS: -28 QRSD: 97 T: 85 QT: 369 QTc: 399 Interpretive Statements SINUS RHYTHM BORDERLINE LEFT AXIS DEVIATION [QRS AXIS < -20] NONSPECIFIC T-WAVE ABNORMALITY No previous ECG available for comparison Electronically Signed On 11-29-2023 18:43:10 CDT by Daniel Amos M.D. [email or web address] county medical [email or web address] health system [id number]
[2023-11-29 12:12] LABS: Basophils % 0.4 %; Eosinophils # 0.1 10^3/uL (0.0-0.8); Hematocrit 44.6 % (37-53); Lymphocytes # 1.8 10^3/uL (0.8-4.8); Lymphocytes % 25.8 %; Mean Corpuscular HGB Conc 33.4 g/dL (30-55); Mean Corpuscular Volume 86.9 fl (82-101); Mean Platelet Volume 10.7 fL (7.4-10.4); Monocytes # 0.6 10^3/uL (0.2-0.9); Monocytes % 7.9 %; Neutrophils # 4.59 10^3/uL (1.8-7.7); Neutrophils % 64.5 %; Nucleated Red Blood Cells % 0 %; Platelet Count 193 10^3/cmm (157-399); Red Blood Count 5.13 10^6/uL (3.85-5.65); Red Cell Distribution Width 13.6 % (12.1-15.1); White Blood Count 7.12 10^3/uL (3.29-11.43)
[2023-11-29 12:30] LABS: INR 1.04 (0.8-1.2)
[2023-11-29 12:35] LABS: Alanine Aminotransferase 13 U/L (0-41); Albumin Level 4.1 g/dL (3.5-5.2); Alkaline Phosphatase 67 U/L (40-130); Anion Gap 14.4 (5-19); Aspartate Amino Transferase 11 U/L (0-40); Blood Urea Nitrogen 22 mg/dL (8-23); Calcium 8.7 mg/dL (8.5-10.5); Carbon Dioxide 25 mmol/L (22-29); Chloride 102 mmol/L (98-107); Globulin 3.2 g/dL (1.3-4.6); Glomerular Filtration Rate 85.2 mL/min (90-130); Glucose 290 mg/dL (65-115); Osmolality Calculated 298 mOsm/kg (285-295); Potassium 4.4 mmol/L (3.5-5.1); Sodium 137 mmol/L (136-145); Total Bilirubin 0.4 mg/dL (0.15-1.2); Total Protein 7.3 g/dL (6.6-8.7)
[2023-11-29] MEDS: iohexol 350 mg/mL 500 mL Btl (per mL) IV (12:50)
[2023-11-29] MEDS: aspirin 81 mg Chew Tablet 324 MG PO (14:12)
--- NOTE | 2023-11-29 14:36 | PM.HP ---
Providers/Chief Complaint Admitting Physician: Nicole Horn MD Primary Care Provider: Gale Ocasio MD Chief Complaint: stroke like symptoms History of Present Illness Michael Oreilly is a 63 year old male who presented to the emergency room today at the insistence of his with complaints of speech abnormalities, left-sided weakness, left-sided facial droop, difficulty walking and dropping things and typing gibberish that he did not recognize his gibberish. Symptom onset began Wednesday with facial droop and left-sided weakness. His encouraged him to come in repeatedly but he declined. Yesterday he was not able to hold a glass of milk and it seems like that was what finally got him to agree to coming in. He has no prior history of known strokes but in talking with his Heather who can be reached at [phone], he has been having complaints of dizziness and confusion intermittently for several years. Maybe 6 years ago he had a brief introduction to methamphetamine when they lived in [place]. He used a significant amount in a short period of time with some adverse experiences. He has since quit smoking, drinking or using any kind of drugs. He has had a marijuana card previously but no longer utilizes it. He has had some chronic neck and back pain along with shoulder pain related to a prior fall in which he sustained spinal compression fractures and a scapular fracture. He is on once daily oxycodone and scheduled Lyrica with as needed baclofen. He has been referred to pain clinic in [place] but did not have an optimal experience there. He is now going to be seeing Dr. Baca though that appointment is not scheduled until December. In addition to musculoskeletal pain he has diabetic nerve pain in both of his legs that is a concern for him. With that neuropathy he has numbness in both lower extremities and upper extremities in a stocking and glove distribution up. Currently sensation is decreased on the left compared to the right from what his baseline sensation is. The pain in his right leg is currently more prominent than the pain in his left leg which is a change for him. He says he feels like he is suddenly stupid since Wednesday and that he is not able to type or find the letters that he wants on the keyboard. He also has difficulty reading type letters at times. He has difficulty remembering things. He has had some dizziness but no falls the last few days. He leans to the left when he tries to walk. He is not able to hold anything in his left hand steadily. No reports of any difficulty swallowing. He initially had some loss of vision in his right eye but it has returned though is not as good as the vision in his left eye presently. His noted a left-sided facial droop. Again all of his symptoms began on Wednesday, November 25 with mild progression over the weekend. No known family history of strokes. He is known to have hyperlipidemia but he has not been taking statin therapy. He also has a history of hypertension. He has had previous cardiac stent. No recent chest pain. He is a known diabetic. he is being admitted to the hospital service for further evaluation, monitoring and initiation of treatment. Review of Systems General: Reports: Other (ROS as per HPI or as otherwise noted here) Const: Denies: fever(s) Eyes: Reports: change in vision (right eye); Denies: photophobia, eye discomfort or floaters ENMT: Reports: other (no drooling); Denies: throat pain Card: Denies: chest pain, swelling of feet/ankles or dyspnea on exertion Resp: Denies: dyspnea GI: Reports: constipation; Denies: dysphagia, change in bowel habits or hematochezia : Denies: difficulty urinating or hematuria Musc: Reports: neck pain (not new but overdue for shot in neck and pain worsening on right side), back pain (not new) and extremity pain (not new at shoulders and both legs, left sife not as prominent as usual) Neuro: Reports: headache(s), numbness in extremities, weakness in extremities, sensory changes, lack of coordination, difficulty walking, dizziness, confusion, Slurred speech present, difficulty communicating thoughts (especially with typing) and restless legs; Denies: seizure-like activity or involuntary movements Taj/Lymph: Denies: easy bruising or easy bleeding Medications/Allergies Home Medications Medication Instructions Recorded Confirmed Last Taken Type blood-glucose meter (Blood Glucose #1 ea 04/14/22 11/29/23 Unknown Rx Monitoring kit) alcohol swabs 1 pad topical TID PRN as needed to 10/13/22 11/29/23 11/28/23 Rx check blood sugar 30 days #100 ea insulin syringe-needle U-100 0.5 #100 ea 07/14/23 11/29/23 Unknown Rx mL 29 gauge x 1/2 (BD Insulin Syringe) lancets (Accu-Chek Softclix #100 ea 08/28/23 11/29/23 Unknown Rx Lancets) blood sugar diagnostic (Accu-Chek #50 strips 09/14/23 11/29/23 Unknown Rx Guide test strips) baclofen 10 mg tablet 10 mg PO .at bedtime PRN muscle 10/12/23 11/29/23 11/28/23 Rx cramps 30 days #30 tabs diclofenac sodium 75 mg 75 mg PO BID PRN pain 30 days #60 10/12/23 11/29/23 11/28/23 Rx tablet,delayed release tabs glipizide 10 mg tablet, extended 10 mg PO DAILY 90 days #90 tabs 10/12/23 11/29/23 11/28/23 Rx release 24 hr insulin aspart U-100 100 unit/mL 5 unit (0.05 mL) SUBCUT TID #15 mL 10/12/23 11/29/23 11/28/23 Rx (3 mL) subcutaneous pen (Novolog FlexPen U-100 Insulin aspart) insulin glargine 100 unit/mL (3 50 unit (0.5 mL) SUBCUT DAILY 30 10/12/23 11/29/23 11/28/23 Rx mL) subcutaneous pen (Lantus days #15 mL Solostar U-100 Insulin) metformin 500 mg tablet,extended 1,500 mg (3 x 500 mg) PO DAILY 90 10/12/23 11/29/23 11/28/23 Rx release 24 hr days #270 tabs pregabalin 100 mg capsule 100 mg PO BID 30 days #60 caps 10/12/23 11/29/23 11/28/23 Rx oxycodone-acetaminophen 5 mg-325 1 tab PO DAILY PRN pain 30 days 10/14/23 11/29/23 11/28/23 Rx mg tablet #30 tabs pen needle, diabetic 32 gauge x #100 ea 11/11/23 11/29/23 Unknown Rx 1/4 (TechLITE Pen Needle) pen needle, diabetic 32 gauge x 11/29/23 11/29/23 Unknown History (BD Ultra-Fine Birgit Pen Needle) Allergies Allergy/AdvReac Type Severity Reaction Status Date / Time No Known Allergies Allergy Verified 08/13/24 10:41 PFSH Acute PFSH: Medical History (Updated 11/29/23 @ 22:28 by Nicole Horn MD) Cervical spondylolysis CAD (coronary artery disease) Erectile dysfunction history of injections, not on oral medications Chronic neck pain Chronic kidney disease Restless leg syndrome Diabetic neuropathy History of colon polyps GERD (gastroesophageal reflux disease) Hyperlipemia Type 2 diabetes mellitus Unable to afford Farxiga Hypertension Hx of seizure disorder Fracture, scapula Fracture of third cervical vertebra Surgical History (Updated 11/29/23 @ 21:49 by Nicole Horn MD) History of coronary artery stent placement (~2014) done in [facility] History of repair of hiatal hernia needs redone per on 11/29/2023 but has declined Hx of colonoscopy less than 10 years, polyps were found Hx of hernia repair bilateral Social History (Updated 11/29/23 @ 22:00 by Nicole Horn MD) Smoking and tobacco/nicotine status: former use of tobacco/nicotine Alcohol intake: former Substance/Drug Use: former Household members: spouse Marital status: Marital status details: Spouse with MS and partial paralysis service: Yes status: Retired branch: [employer] [place] Vitals/I&O/Wt Last Vital Signs Temp 98.1 F 11/29/23 11:24 Pulse 86 11/29/23 14:16 Resp 16 11/29/23 14:16 BP 143/93 11/29/23 11:50 Pulse Ox 96 11/29/23 14:16 O2 Del Method Room Air 11/29/23 14:16 Physical Exam Narrative: Patient is awake and alert, oriented to person, place and situation. Able to provide much history but some details cannot clarify. Sided facial droop is noted. Extraocular movements are intact. Pupils are reactive bilaterally. moist mucous membranes. Neck is supple, tenderness along the right sternocleidomastoid. No appreciable bruits. Lungs are clear to auscultation bilaterally. Cardiovascular exam reveals a regular rate and rhythm. No murmurs. Abdomen soft, nontender, positive bowel sounds. Extremities no pitting edema in the pretibial area. Tenderness to palpation noted right lower extremity to palpation circumferentially but most prominent posteriorly, more notable than the left. Sensation is decreased to light touch both hands and feet with left more so than right. Left hand library media specialist weaker than right hand library media specialist. Slight drift noted of left upper extremity. No drift noted to the left lower extremity. Gait is not currently assessed but has ataxia of the left upper extremity. Skin is dry. No bruising areas noted. Data 11/29/23 12:04 11/29/23 12:04 Other Labs: Radiology Impressions Chest X-Ray 11/29/23 11:32 IMPRESSION: 1. No acute cardiopulmonary finding. Head CT 11/29/23 11:32 IMPRESSION: 1. No acute intracranial hemorrhage or mass effect. 2. Probable subacute infarct RIGHT centrum semiovale/thompson radiata. 3. Extensive atherosclerotic plaque in the distal vertebral and intracranial carotid arteries. Head/Neck CTA 11/29/23 11:32 IMPRESSION: 1. 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 Reconstitutes in the supraclinoid carotid artery. 2. Increasing plaque and dilatation of the proximal LEFT ICA, dilated to 1.3 cm. High-grade stenosis proximal LEFT ICA with plaque and ulcerations. Stenosis greater than 70%. 3. LEFT ICA is nearly completely occluded at the skull base. Additional high-grade stenosis through the cavernous sinus. 4. Moderate stenosis distal RIGHT vertebral artery beyond the foramen magnum. 5. High-grade stenosis origin of the LEFT vertebral artery. Distal LEFT vertebral artery is completely occluded. 6. RIGHT MCA is patent due to an intact [place] of [place]. There is a significant stenosis involving the RIGHT A1 segment with the RIGHT MCA. RIGHT posterior communicating artery is still patent. 7. Paucity of vessels in the distal RIGHT MCA territory at the site of subacute infarct. This is beyond the M2 segment. Abrupt termination of the distal MCA artery best seen on the MIP imaging. 8. Very small caliber posterior cerebral arteries. 9. Irregular plaque with ulcerations involving the aortic arch. Laboratory Results WBC 7.12 10^3/uL (3.29-11.43) 11/29/23 12:04 RBC 5.13 10^6/uL (3.85-5.65) 11/29/23 12:04 Hgb 14.90 g/dL (11.27-16.99) 11/29/23 12:04 Hct 44.6 % (37-53) 11/29/23 12:04 MCV 86.9 fl (82-101) 11/29/23 12:04 MCH 29.0 pg (27-33) 11/29/23 12:04 MCHC 33.4 g/dL (30-55) 11/29/23 12:04 RDW 13.6 % (12.1-15.1) 11/29/23 12:04 Plt Count 193 10^3/cmm (157-399) 11/29/23 12:04 MPV 10.7 fL (7.4-10.4) H 11/29/23 12:04 Neut % (Auto) 64.5 % 11/29/23 12:04 Lymph % (Auto) 25.8 % 11/29/23 12:04 [place] % (Auto) 7.9 % 11/29/23 12:04 Eos % (Auto) 1.0 % 11/29/23 12:04 Baso % (Auto) 0.4 % 11/29/23 12:04 Neut # (Auto) 4.59 10^3/uL (1.8-7.7) 11/29/23 12:04 Lymph # (Auto) 1.8 10^3/uL (0.8-4.8) 11/29/23 12:04 Norton # (Auto) 0.6 10^3/uL (0.2-0.9) 11/29/23 12:04 Eos # (Auto) 0.1 10^3/uL (0.0-0.8) 11/29/23 12:04 Baso # (Auto) 0.0 10^3/uL (0.0-0.1) 11/29/23 12:04 Nucleated RBC % (auto) 0 % 11/29/23 12:04 Nucleated RBCs # 0.0 /100WBC 11/29/23 12:04 PT 14.00 SECONDS (12.1-14.9) 11/29/23 12:04 INR 1.04 (0.8-1.2) 11/29/23 12:04 Sodium 137 mmol/L (136-145) 11/29/23 12:04 Potassium 4.4 mmol/L (3.5-5.1) 11/29/23 12:04 Chloride 102 mmol/L (98-107) 11/29/23 12:04 Carbon Dioxide 25 mmol/L (22-29) 11/29/23 12:04 Anion Gap 14.4 (5-19) 11/29/23 12:04 BUN 22 mg/dL (8-23) 11/29/23 12:04 Creatinine 0.9 mg/dL (0.7-1.2) 11/29/23 12:04 GFR Calculation 85.2 mL/min (90-130) L 11/29/23 12:04 Glucose 290 mg/dL (65-115) H 11/29/23 12:04 Calculated Osmolality 298 mOsm/kg (285-295) H 11/29/23 12:04 Calcium 8.7 mg/dL (8.5-10.5) 11/29/23 12:04 Total Bilirubin 0.4 mg/dL (0.15-1.2) 11/29/23 12:04 AST 11 U/L (0-40) 11/29/23 12:04 ALT 13 U/L (0-41) 11/29/23 12:04 Alkaline Phosphatase 67 U/L (40-130) 11/29/23 12:04 Total Protein 7.3 g/dL (6.6-8.7) 11/29/23 12:04 Albumin 4.1 g/dL (3.5-5.2) 11/29/23 12:04 Globulin 3.2 g/dL (1.3-4.6) 11/29/23 12:04 A&P Assessment and plan (1) CVA (cerebral vascular accident): Subacute CVA presenting outside of the window for thrombolytic therapy or invasive intervention. He was not taking antiplatelet therapy or statin therapy at home although both have been previously prescribed. Risk factors include diabetes that is suboptimally controlled, hypertension not currently on treatment, dyslipidemia with high LDL not on treatment. He previously smoked cigarettes and had a very brief period of time that he smoked methamphetamine as well approximately 6 years ago. No known personal history of prior strokes but has had episodes of dizziness and confusion off and on for the last 6 to 8 years. NIHSS on my examination is 6. Observation admission for now Serial neuroexams Check echocardiogram I spoke with Dr. Hopper regarding findings on CTA of the head and the neck and the acute symptoms patient is presenting with. Not a candidate for any acute management or intervention but she will see the patient in follow-up. Current recommendations are for aspirin, Plavix, statin therapy, stroke education Dysphagia screening completed at bedside PT, OT and speech evaluations ordered VTE prophylaxis Qualifiers: CVA mechanism: thrombosis Laterality of affected vessel: right Precerebral and cerebral artery: middle cerebral artery Qualified Code(s): I63.311 - Cerebral infarction due to thrombosis of right middle cerebral artery (2) Hypertension: Longstanding diagnosis of hypertension. Review of prior vital sign record shows significant variability. Currently patient is not on any specific treatment for hypertension. Suspect some of the variability is in part related to pain control. Currently with suboptimal blood pressures upon presentation 150s over 100s. Outside of initial permissive hypertension window we usually bryan. More recent blood pressures 140s over 90s. Consider initiation of antihypertensive regimen after monitoring blood sugars a bit longer Qualifiers: Hypertension type: primary hypertension Qualified Code(s): I10 - Essential (primary) hypertension (3) Hyperlipemia: Mixed hyperlipidemia with elevated triglycerides and total cholesterol along with elevated LDL and low HDL. Cholesterol/HDL ratio in June of this year was 10.13 which is significantly elevated. Patient quit taking statin therapy on his own feeling like he was taking too many medications that cost too much money. Initiate statin therapy Qualifiers: Hyperlipidemia type: mixed hyperlipidemia Qualified Code(s): E78.2 - Mixed hyperlipidemia (4) Type 2 diabetes mellitus: Insulin requiring with hyperglycemia and peripheral neuropathy along with chronic kidney disease stage II. Chronically on insulin glargine and insulin aspartate along with metformin and glipizide. Hemoglobin A1c on October 11 was 9.1. 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 No recent chest pain though reports that he at times says my heart hurts . Monitor for symptoms suggesting angina Qualifiers: Associated angina: without angina Coronary Disease-Associated Artery/Lesion type: [place] artery [place] vs. transplanted heart: [place] heart Qualified Code(s): I25.10 - Atherosclerotic heart disease of [place] coronary artery without angina pectoris (6) Chronic kidney disease: Stage II with GFR 85. Reports urinary symptoms recently but urinalysis is still pending. Monitor intake and renal function Follow-up pending urinalysis Qualifiers: Chronic kidney disease stage: stage 2 (mild) Qualified Code(s): N18.2 - Chronic kidney disease, stage 2 (mild) (7) GERD (gastroesophageal reflux disease): With a history of hiatal hernia previously repaired in need of redo per Will add PPI Qualifiers: Esophagitis presence: without esophagitis Qualified Code(s): K21.9 - Gastro-esophageal reflux disease without esophagitis (8) Chronic neck pain: Chronically on once daily oxycodone along with scheduled Lyrica andas needed baclofen Continue usual home medication regimen for pain control Plan VTE prophylaxis: Lovenox GI Prophylaxis: PPI Antibiotics: none Pending studies: echo, a1c, lipid panel, urinalysis Telemetry: ordered to monitor for arrhythmia Maldonado: not currently indicated Line(s): peripheral IVs Disposition plan: Home with outpatient follow up to include outpatient PT, OT, Speech anticipated along with follow up to neurology and PCP. Transportation to appointment with Neurology may be a challenge for patient secondary to stroke and 's medical limitations Code Status: Full Code Supportive care otherwise Findings, concerns and plans were discussed with patient and as well as his , both individually as she was at home, in depth and they were both given an opportunity to ask questions Attestations Medical Necessity Statement*: Currently anticipate a stay less than two midnights currently in this patient presenting with subacute stroke outside of window for thrombolytic therapy or invasive intervention acutely. He has not had previous stroke. He has extensive vascular findings on CTA of the head and neck. At high risk for additional thrombotic events. He is being initiated on antiplatelet therapy, statin therapy and receiving therapy evaluations for optimization of care going forward. Coding Level of Care Code 73590 High Time for a total of 90 minutes, includes reviewing past or interval history, examining/interviewing patient, placing orders, counseling patient/family/other support (discussed with patient and then with at patient request), discussing plan of care with staff, communicating with other healthcare providers and documenting encounter Diagnoses Cerebrovascular accident (CVA) due to thrombosis of right middle cerebral artery I63.311 CVA mechanism: thrombosis Laterality of affected vessel: right Precerebral and cerebral artery: middle cerebral artery Primary hypertension I10 Hypertension type: primary hypertension Mixed hyperlipidemia E78.2 Hyperlipidemia type: mixed hyperlipidemia Type 2 diabetes mellitus with diabetic polyneuropathy, without long-term current use of insulin E11.42 Diabetes mellitus complication detail: with polyneuropathy Diabetes mellitus complication status: with neurologic complications Diabetes mellitus termite technician insulin use: without penitentiary use Coronary artery disease involving [place] coronary artery of [place] heart without angina pectoris I25.10 Associated angina: without angina Coronary Disease-Associated Artery/Lesion type: [place] artery [place] vs. transplanted heart: [place] heart Stage 2 chronic kidney disease N18.2 Chronic kidney disease stage: stage 2 (mild) Gastroesophageal reflux disease without esophagitis K21.9 Esophagitis presence: without esophagitis Chronic neck pain M54.2; G89.29 NIH stroke score NIHSS Level Of Consciousness - 1a: 0 Level Of Consciousness Questions - 1b: Both Correct Level Of Consciousness Commands - 1c: Both Correct Best Gaze - 2: Normal Visual [place] - 3: Partial Hemianopia Facial Palsy - 4: Minor Paralysis Motor Arm Right - 5: No Drift Motor Arm Left - 5: Drift Motor Leg Right - 6: No Drift Motor Leg Left - 6: No Drift Limb Ataxia - 7: Present In One Limb Sensory - 8: Mild To Moderate Loss Best Language - 9: No Aphasia Dysarthia - 10: Mild/Moderate Dysarthia Extinction And Inattention - 11: 0 Score Total Score: 6
[2023-11-29 14:45] LABS: Bilirubin Urine Negative (Negative); Blood Urine Negative (Negative); Glucose Urine UA 2+ (Normal); Ketones Urine Negative (Negative); Leukocyte Esterase Urine Negative (Negative); Nitrate Urine Negative (Negative); Protein Urine Negative (Negative); Urine Appearance Clear (CLEAR); Urine Color Yellow (Yellow)
[2023-11-29 14:49] LABS: Add Urine Microscopic? YES; Bacteria Urine None Seen /hpf; Hyaline Casts Urine 1.21 /lpf; RBC Urine 0-2 /hpf (0-2); Squamous Epithelial Cell Urine 0-5 /hpf (0-5); WBC Urine 0-5 /hpf (0-5)
[2023-11-29 14:51] LABS: Amphetamines Screen Urine Negative (Negative); Barbiturates Screen Urine Negative (Negative); Benzodiazepines Screen Urine Negative (Negative); Cocaine Screen Urine Negative (Negative); Opiate Screen Urine Negative (Negative); PCP Screen Urine Negative (Negative); THC Screen Urine Negative (Negative)
[2023-11-29 15:00] LABS: Specific Gravity, Urine 1.063 (1.005-1.030)
--- NOTE | 2023-11-29 15:33 | USCV_ITS ---
Michael Oreilly Age: 63 Gender: M : 1960 Exam Date: 11/29/2023 16:38 Ordering Phys: Nicole Horn MD Technologist: [place] [facility] [place]: cp BP: 130 / 74 HR: 62 Rhythm: Sinus Technical Quality: Adequate MEASUREMENTS (Male / Female) Normal Values 2D ECHO LV Diastolic Diameter PLAX 4.1 cm 4.2 - 5.9 / 3.9 - 5.3 cm IVS Diastolic Thickness 1.0 cm 0.6 - 1.0 / 0.6 - 0.9 cm IVS Systolic Thickness 1.6 cm LVPW Diastolic Thickness 1.1 cm 0.6 - 1.0 / 0.6 - 0.9 cm LVPW Systolic Thickness 1.3 cm LVOT Diameter 2.0 cm LV Ejection Fraction 2D Teich 63.4 % LV Ejection Fraction MOD 4C 55.6 % LV Ejection Fraction MOD 2C 70.0 % LV Ejection Fraction 2C AL 71.1 % LA Diameter 2.1 cm RA Systolic Volume 4C AL 37.2 ml RA Systolic Volume 4C MOD 36.4 ml Aorta at Sinotubular Diameter 2.6 cm M-MODE LA Ao Ratio MM 1.1 AV Cusp Separation MM 2.3 cm DOPPLER AV Peak Velocity 122.0 cm/s LVOT Peak Velocity 96.0 cm/s AV Area Cont Eq vti 2.4 cm squared AV Area Cont Eq pk 2.5 cm squared MV Peak Velocity 85.0 cm/s MV Area PHT 3.0 cm squared Mitral E to A Ratio 1.1 TV Peak Velocity 111.5 cm/s TR Peak Velocity 124.0 cm/s TR Peak Gradient 6.2 mmHg TV Peak E Velocity 91.0 cm/s Right Atrial Pressure 3.0 mmHg Pulmonary Artery Systolic Pressu 9.2 mmHg PV Peak Velocity 117.0 cm/s FINDINGS Left Ventricle Left ventricle is normal in size. LV systolic function is normal with EF of 60 to 65%. No regional wall motion abnormalities are seen. Right Ventricle Normal in size and function Right Atrium Normal in size Left Atrium Normal in size Mitral Valve Structurally normal mitral valve. Trace mitral regurgitation. Aortic Valve Structurally normal aortic valve. No significant stenosis or regurgitation. Tricuspid Valve Insufficient TR jet to calculate RVSP Pulmonic Valve Trace pulmonic regurgitation. Pericardium Normal Aorta Normal in size IVC Not well visualized CONCLUSIONS LV systolic function is normal with EF of 60 to 65%. Trace mitral regurgitation. Trace pulmonic regurgitation. No comparison studies are available Daniel Amos MD (Electronically Signed) Final Date: 30 November 2023 08:59 S
[2023-11-29 17:34] LABS: Glucose Point of Care 175 mg/dL (70-110)
[2023-11-29] MEDS: oxyCODONE-APAP 5-325 mg Tablet 1 TAB PO (17:49)
[2023-11-29] MEDS: insulin lispro 100 unit/1 mL SUBCUT ×2 (17:50→21:27)
[2023-11-29 21:01] LABS: Glucose Point of Care 173 mg/dL (70-110)
[2023-11-29] MEDS: pregabalin 100 mg Capsule PO (21:26)
[2023-11-29] MEDS: atorvastatin 40 mg Tablet PO (21:26)
[2023-11-29] MEDS: sennosides-docusate Tablet 2 TAB PO (23:19)
[2023-11-30] VITALS (10 sets, daily range): BP systolic 131–190; BP diastolic 73–103; PULSE 63–70; RESP 16–20; TEMP 36.3–36.8; O2SAT 94–99
[2023-11-30 05:22] LABS: Estmated Average Glucose 192; Hemoglobin A1C 8.3 % (4.0-6.0)
[2023-11-30 05:30] LABS: Anion Gap 12.2 (5-19); Blood Urea Nitrogen 19 mg/dL (8-23); Calcium 8.5 mg/dL (8.5-10.5); Carbon Dioxide 28 mmol/L (22-29); Chloride 102 mmol/L (98-107); Creatinine Clr Calc Pharmacy 95.0793; Glomerular Filtration Rate 85.2 mL/min (90-130); Glucose 184 mg/dL (65-115); Osmolality Calculated 293 mOsm/kg (285-295); Potassium 4.2 mmol/L (3.5-5.1); Sodium 138 mmol/L (136-145)
[2023-11-30 05:36] LABS: Chol HDL Ratio 9.07 mg/dL (1.0-5.00); Cholesterol 245 mg/dL (0-200); HDL Cholesterol 27 mg/dL (60-100); LDL Cholesterol Calculated 168 mg/dL (50-129); LDL HDL Ratio 6.22 RATIO (0.00-3.22); Triglycerides 248 mg/dL (0-150)
[2023-11-30 06:26] LABS: Glucose Point of Care 221 mg/dL (70-110)
[2023-11-30] MEDS: pregabalin 100 mg Capsule PO ×2 (08:44→21:15)
[2023-11-30] MEDS: aspirin 81 mg EC Tablet PO (08:44)
[2023-11-30] MEDS: sennosides-docusate Tablet 2 TAB PO ×2 (08:44→17:11)
[2023-11-30] MEDS: clopidogrel 75 mg Tablet PO (08:44)
[2023-11-30] MEDS: pantoprazole DR 40 mg Tablet PO (08:45)
[2023-11-30] MEDS: enoxaparin 40 mg/0.4 mL Syringe SUBCUT (08:48)
[2023-11-30] MEDS: insulin glargine 100 units/1 mL 30 UNIT SUBCUT (08:49)
[2023-11-30] MEDS: insulin lispro 100 unit/1 mL SUBCUT ×3 (08:49→21:15)
--- NOTE | 2023-11-30 09:24 | PC.CHAP ---
Pastoral Care Encounter/Spiritual Assessment Type of Contact [] Declined administrative support associate visit [] Patient/Family/Request visit [] Outpatient visit [] Follow-up visit [] Physician referral [] Code/Alert [] Routine visit [] Staff referral [] Actively dying [x] Patient sleeping [] Family support [] [] Out of room [] Palliative care [] [] Receiving care in room [] Pre-surgical visit [] Trauma [] Long length of stay [] ICU visit [] Other: Relational/Emotional Strength [] Patient feels connected with others/family/visitors/staff [] Distress [] Loneliness/isolation [] Abandonment Spirituality of Patient [] Person of [place] [] Attends Christianity of their [place] [] Believes in Prayer [] Reads Bible or Lutheran materials [] There are Spiritual issues to be addressed Double Spindle Shaper Operator Interventions [] Prayer [] Active listening [] Non-anxious presence [] Spiritual/emotional support [] Crisis/trauma care [] Spiritual counseling [] Bereavement support [] Provided bereavement packet [] Provided Bible/devotional materials [] Provided toy/stuffed animal, coloring book to patient or family member [] Provided Communion [] Anointing/[place] [] Salvation [] Completed spiritual assessment [] Other: Impact on Illness or Injury [] Angry [] Fearful [] Anxious [] Often cries [] Exhaustion [] Unable to work [] Unable to attend mandaen [] Unable to walk/stand [] Unable to read [] Unable to drive [] Unable to eat/drink [] Unable to sleep [] Unable to be with family [] Patient intubated [] Other: Summary Time spent with patient
[2023-11-30 11:02] LABS: Glucose Point of Care 219 mg/dL (70-110)
--- NOTE | 2023-11-30 11:53 | P.PN_ITS ---
Subjective 2 Subjective: Patient was seen this morning, he sitting up to the side of the bed, he was seen ambulating the hallways with the help of nursing staff, he has a left facial droop, left upper extremity weakness at about 3 out of 5 he has good left lower extremity strength, does have word finding difficulty, has a flat affect, pupils equal round reactive to light, he denies any pain complaints, no nausea, no vomiting Vitals/I&O/Wt Last Vital Signs Temp 98.3 F 11/30/23 11:34 Pulse 63 11/30/23 11:34 Resp 16 11/30/23 11:34 BP 166/79 11/30/23 11:34 Pulse Ox 95 11/30/23 11:34 O2 Del Method Room Air 11/30/23 11:34 11/29/23 11/30/23 11/30/23 22:59 06:59 14:59 Intake Total 120 / 120 Balance 120 / 120 Weight last 48 hrs Weight 90.537 kg Weight 86.183 kg Physical Exam 2 Const: COMMON NORMALS: no acute distress HENMT: COMMON NORMALS: normocephalic HEAD & SCALP: normocephalic Eye: COMMON NORMALS: Equal, round and reactive pupils present PUPIL: Yes Equal, round and reactive pupils present Resp: COMMON NORMALS: normal respiratory effort, No retractions, No use of accessory muscles and clear to auscultation bilaterally AUSCULTATION: clear to auscultation bilaterally Cardio: COMMON NORMALS: regular rate, regular rhythm, S1 normal heart sound present and S2 normal heart sound present RATE: regular rate RHYTHM: r egular rhythm HEART SOUNDS: S1 normal heart sound present and S2 normal heart sound present GI: COMMON NORMALS: Normal to inspection, nondistended, normoactive bowel sounds present and non-tender Extremity: COMMON NORMALS: no pedal edema Neuro: OTHER: Facial droop ? Left lower extremity strength 5 out of 5 ? Left upper extremity strength 3 out of 5 ? [id number] abnormal on the left, word finding difficulty I- mild slurring of his words Psych: COMMON NORMALS: mental status grossly normal Data 11/29/23 12:04 11/30/23 04:18 A&P Assessment and plan (1) CVA (cerebral vascular accident): - Left-sided deficits -CT head - CT/CT head wo con* [id number] IMPRESSION: 1. No acute intracranial hemorrhage or mass effect. 2. Probable subacute infarct RIGHT centrum semiovale/thompson radiata. 3. Extensive atherosclerotic plaque in the distal vertebral and intracranial carotid arteries. -CTA head and neck CT/CT angio headneck* [id number] IMPRESSION: 1. 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 Reconstitutes in the supraclinoid carotid artery. 2. Increasing plaque and dilatation of the proximal LEFT ICA, dilated to 1.3 cm. High-grade stenosis proximal LEFT ICA with plaque and ulcerations. Stenosis greater than 70%. 3. LEFT ICA is nearly completely occluded at the skull base. Additional high- grade stenosis through the cavernous sinus. 4. Moderate stenosis distal RIGHT vertebral artery beyond the foramen magnum. 5. High-grade stenosis origin of the LEFT vertebral artery. Distal LEFT vertebral artery is completely occluded. 6. RIGHT MCA is patent due to an intact [place]. There is a significant stenosis involving the RIGHT A1 segment with the RIGHT MCA. RIGHT posterior communicating artery is still patent. 7. Paucity of vessels in the distal RIGHT MCA territory at the site of subacute infarct. This is beyond the M2 segment. Abrupt termination of the distal MCA artery best seen on the MIP imaging. 8. Very small caliber posterior cerebral arteries. 9. Irregular plaque with ulcerations involving the aortic arch. -cardiac echo CONCLUSIONS LV systolic function is normal with EF of 60 to 65%. Trace mitral regurgitation. Trace pulmonic regurgitation. No comparison studies are available Plan ? Continue aspirin, statin, Plavix -Continue IV fluids -Permissive Hypertension -neurochecks, aspiration precautions, nih stroke scale -monitor as inpatient -pt/ot -speech therapy Qualifiers: CVA mechanism: thrombosis Laterality of affected vessel: right P recerebral and cerebral artery: middle cerebral artery Qualified Code(s): I 63.311 - Cerebral infarction due to thrombosis of right middle cerebral artery (2) Hypertension: Qualifiers: Hypertension type: primary hypertension Qualified Code(s): I10 - Essential (primary) hypertension (3) Hyperlipemia: Mixed hyperlipidemia with elevated triglycerides and total cholesterol along with elevated LDL and low HDL. Cholesterol/HDL ratio in June of this year was 10.13 which is significantly elevated. Patient quit taking statin therapy on his own feeling like he was taking too many medications that cost too much money. Initiate statin therapy Qualifiers: Hyperlipidemia type: mixed hyperlipidemia Qualified Code(s): E78.2 - Mixed hyperlipidemia (4) Type 2 diabetes mellitus: Insulin requiring with hyperglycemia and peripheral neuropathy along with chronic kidney disease stage II. Chronically on insulin glargine and insulin aspartate along with metformin and glipizide. Hemoglobin A1c on October 11 was 9.1. Continue long and short acting insulin Currently holding metformin secondary to contrast administration Currently holding glipizide secondary to anticipated decreased oral intake during hospital stay Monitor blood sugars adjusting management accordingly Need more optimal diabetes control to decrease risk of recurrent stroke Qualifiers: Diabetes mellitus intermediate frame tender insulin use: without correction use Diabetes mellitus complication status: with neurologic complications Diabetes mellitus complication detail: with polyneuropathy Qualified Code(s): E11.42 - Type 2 diabetes mellitus with diabetic polyneuropathy (5) CAD (coronary artery disease): History of prior coronary stent, details unknown. No recent chest pain though reports that he at times says my heart hurts . Monitor for symptoms suggesting angina Qualifiers: Coronary Disease-Associated Artery/Lesion type: barrow artery [place] vs. transplanted heart: barrow heart Associated angina: without angina Qualified Code(s): I25.10 - Atherosclerotic heart disease of barrow coronary artery without angina pectoris (6) Chronic kidney disease: Stage II with GFR 85. Reports urinary symptoms recently but urinalysis is still pending. Monitor intake and renal function Follow-up pending urinalysis Qualifiers: Chronic kidney disease stage: stage 2 (mild) Qualified Code(s): N18.2 - Chronic kidney disease, stage 2 (mild) (7) GERD (gastroesophageal reflux disease): With a history of hiatal hernia previously repaired in need of redo per Will add PPI Qualifiers: Esophagitis presence: without esophagitis Qualified Code(s): K21.9 - Gastro-esophageal reflux disease without esophagitis (8) Chronic neck pain: Chronically on once daily oxycodone along with scheduled Lyrica andas needed baclofen Continue usual home medication regimen for pain control Plan VTE prophylaxis: Lovenox GI Prophylaxis: PPI Antibiotics: none Pending studies: echo, a1c, lipid panel, urinalysis Telemetry: ordered to monitor for arrhythmia Maldonado: not currently indicated Line(s): peripheral IVs Disposition plan: Home with outpatient follow up to include outpatient PT, OT, Speech anticipated along with follow up to neurology and PCP. Transportation to appointment with Neurology may be a challenge for patient secondary to stroke and 's medical limitations Code Status: Full Code Supportive care otherwise Findings, concerns and plans were discussed with patient and as well as his , both individually as she was at home, in depth and they were both given an opportunity to ask questions Attestations 2 Medical Necessity Statement*: Patient requires hospitalization, inpatient, greater than 2 minutes, for acute CVA residual left-sided deficits Diagnoses Cerebrovascular accident (CVA) due to thrombosis of right middle cerebral artery I63.311 CVA mechanism: thrombosis Laterality of affected vessel: right Precerebral and cerebral artery: middle cerebral artery Primary hypertension I10 Hypertension type: primary hypertension Mixed hyperlipidemia E78.2 Hyperlipidemia type: mixed hyperlipidemia Type 2 diabetes mellitus with diabetic polyneuropathy, without long-term current use of insulin E11.42 Diabetes mellitus intermediate frame tender insulin use: without correction use Diabetes mellitus complication status: with neurologic complications Diabetes mellitus complication detail: with polyneuropathy Coronary artery disease involving barrow coronary artery of barrow heart without angina pectoris I25.10 Coronary Disease-Associated Artery/Lesion type: barrow artery [place] vs. transplanted heart: barrow heart Associated angina: without angina Stage 2 chronic kidney disease N18.2 Chronic kidney disease stage: stage 2 (mild) Gastroesophageal reflux disease without esophagitis K21.9 Esophagitis presence: without esophagitis Chronic neck pain M54.2; G89.29
[2023-11-30] MEDS: sodium chloride 0.9% 1,000 ML 75 ML IV (13:27)
[2023-11-30] MEDS: oxyCODONE-APAP 5-325 mg Tablet 1 TAB PO (15:10)
[2023-11-30 16:35] LABS: Glucose Point of Care 108 mg/dL (70-110)
[2023-11-30 19:42] LABS: Glucose Point of Care 167 mg/dL (70-110)
[2023-11-30] MEDS: atorvastatin 40 mg Tablet PO (21:15)
[2023-11-30 21:25] LABS: Glucose Point of Care 145 mg/dL (70-110)
[2023-12-01] VITALS: BP 115/72; PULSE 63; RESP 16; TEMP 36.6; O2SAT 94
[2023-12-01] MEDS: sodium chloride 0.9% 1,000 ML 75 ML IV (02:55)
[2023-12-01 04:00] VITALS: BP 171/96; PULSE 64; RESP 17; TEMP 36.5; O2SAT 97
[2023-12-01 04:56] LABS: Basophils % 0.4 %; Eosinophils # 0.2 10^3/uL (0.0-0.8); Eosinophils % 2.3 %; Hematocrit 40.5 % (37-53); Lymphocytes # 2.4 10^3/uL (0.8-4.8); Mean Corpuscular HGB Conc 33.3 g/dL (30-55); Mean Corpuscular Hemoglobin 29.1 pg (27-33); Mean Corpuscular Volume 87.3 fl (82-101); Mean Platelet Volume 10.7 fL (7.4-10.4); Monocytes # 0.6 10^3/uL (0.2-0.9); Monocytes % 8.1 %; Neutrophils # 3.82 10^3/uL (1.8-7.7); Neutrophils % 54.9 %; Nucleated Red Blood Cells % 0 %; Platelet Count 169 10^3/cmm (157-399); Red Blood Count 4.64 10^6/uL (3.85-5.65); Red Cell Distribution Width 13.8 % (12.1-15.1); White Blood Count 6.95 10^3/uL (3.29-11.43)
[2023-12-01 05:11] LABS: Anion Gap 10.9 (5-19); Blood Urea Nitrogen 19 mg/dL (8-23); Calcium 7.8 mg/dL (8.5-10.5); Carbon Dioxide 25 mmol/L (22-29); Chloride 105 mmol/L (98-107); Creatinine Clr Calc Pharmacy 96.6749; Glomerular Filtration Rate 85.2 mL/min (90-130); Glucose 211 mg/dL (65-115); Osmolality Calculated 293 mOsm/kg (285-295); Potassium 3.9 mmol/L (3.5-5.1); Sodium 137 mmol/L (136-145)
[2023-12-01 06:18] LABS: Glucose Point of Care 182 mg/dL (70-110)
[2023-12-01 07:15] VITALS: BP 154/82; PULSE 60; RESP 15; TEMP 36.9; O2SAT 96
--- NOTE | 2023-12-01 08:25 | PC.CHAP ---
Pastoral Care Encounter/Spiritual Assessment Type of Contact [] Declined hide or skin buffer visit [] Patient/Family/Request visit [] Outpatient visit [] Follow-up visit [] Physician referral [] Code/Alert [x] Routine visit [] Staff referral [] Actively dying [] Patient sleeping [] Family support [] [] Out of room [] Palliative care [] [] Receiving care in room [] Pre-surgical visit [] Trauma [] Long length of stay [] ICU visit [] Other: Relational/Emotional Strength [x] Patient feels connected with others/family/visitors/staff [] Distress [] Loneliness/isolation [] Abandonment Spirituality of Patient [x] Person of [place] [] Attends Caodaism of their [place] [x] Believes in Prayer [] Reads Bible or Protestant materials [] There are Spiritual issues to be addressed Knitting Inspector Interventions [x] Prayer [x] Active listening [] Non-anxious presence [x] Spiritual/emotional support [] Crisis/trauma care [] Spiritual counseling [] Bereavement support [] Provided bereavement packet [] Provided Bible/devotional materials [] Provided toy/stuffed animal, coloring book to patient or family member [] Provided Communion [] Anointing/[place] [] Salvation [x] Completed spiritual assessment [] Other: Impact on Illness or Injury [] Angry [] Fearful [] Anxious [] Often cries [] Exhaustion [] Unable to work [] Unable to attend mandaeism [] Unable to walk/stand [] Unable to read [] Unable to drive [] Unable to eat/drink [] Unable to sleep [] Unable to be with family [] Patient intubated [] Other: Summary Time spent with patient 5 min
[2023-12-01] MEDS: insulin glargine 100 units/1 mL 30 UNIT SUBCUT (08:35)
[2023-12-01] MEDS: insulin lispro 100 unit/1 mL SUBCUT ×2 (08:36→11:00)
[2023-12-01] MEDS: clopidogrel 75 mg Tablet PO (08:37)
[2023-12-01] MEDS: aspirin 81 mg EC Tablet PO (08:37)
[2023-12-01] MEDS: enoxaparin 40 mg/0.4 mL Syringe SUBCUT (08:39)
[2023-12-01] MEDS: pantoprazole DR 40 mg Tablet PO (08:40)
[2023-12-01] MEDS: sennosides-docusate Tablet 2 TAB PO (08:42)
[2023-12-01] MEDS: pregabalin 100 mg Capsule PO (08:58)
[2023-12-01 10:45] LABS: Glucose Point of Care 147 mg/dL (70-110)
[2023-12-01 11:00] VITALS: RESP 16
[2023-12-01] MEDS: oxyCODONE-APAP 5-325 mg Tablet 1 TAB PO (11:00)
--- NOTE | 2023-12-01 11:15 | P.DS_ITS ---
Discharge Providers Date of Admission: 11/29/23 15:15 Date of Discharge: December 01, 2023 Attending Provider at Admission: Nicole Horn MD Attending Provider at Discharge: Gilbert Simeon MD Primary Care Provider: Gale Ocasio MD Diagnoses at Discharge Discharge Diagnosis (1) CVA (cerebral vascular accident): Status: Acute Qualifiers: CVA mechanism: thrombosis Laterality of affected vessel: right Precerebral and cerebral artery: middle cerebral artery Qualified Code(s): I63.311 - Cerebral infarction due to thrombosis of right middle cerebral artery (2) Hypertension: Status: Chronic Qualifiers: Hypertension type: primary hypertension Qualified Code(s): I10 - Essential (primary) hypertension (3) Hyperlipemia: Status: Chronic Qualifiers: Hyperlipidemia type: mixed hyperlipidemia Qualified Code(s): E78.2 - Mixed hyperlipidemia (4) Type 2 diabetes mellitus: Status: Chronic Qualifiers: Diabetes mellitus complication detail: with polyneuropathy Diabetes mellitus complication status: with neurologic complications Diabetes mellitus skilled nursing insulin use: without skilled nursing use Qualified Code(s): E11.42 - Type 2 diabetes mellitus with diabetic polyneuropathy Permanent problem details: Unable to afford [employer] (5) CAD (coronary artery disease): Status: Chronic Qualifiers: Associated angina: without angina Coronary Disease-Associated Artery/Lesion type: [place] artery [place] vs. transplanted heart: [place] heart Qualified Code(s): I25.10 - Atherosclerotic heart disease of [place] coronary artery without angina pectoris (6) Chronic kidney disease: Status: Chronic Qualifiers: Chronic kidney disease stage: stage 2 (mild) Qualified Code(s): N18.2 - Chronic kidney disease, stage 2 (mild) (7) GERD (gastroesophageal reflux disease): Status: Chronic Qualifiers: Esophagitis presence: without esophagitis Qualified Code(s): K21.9 - Gastro-esophageal reflux disease without esophagitis (8) Chronic neck pain: Status: Chronic Reason for Visit Reason for Visit: stroke like symptoms Hospital Course Hospital Course This is a 63-year-old male with a past medical history of type 2 diabetes mellitus, who presents [facility] due to speech abnormalities, left- sided weakness left-sided facial droop difficulty walking, dropping things, symptom onset was Sunday, November 26, 2023 She was admitted to [facility] for CVA, with left-sided deficits, out of tPA window, out of window for any endovascular intervention CVA (cerebral vascular accident): - Left-sided deficits -CT head - CT/CT head wo con* [id number] IMPRESSION: 1. No acute intracranial hemorrhage or mass effect. 2. Probable subacute infarct RIGHT centrum semiovale/thompson radiata. 3. Extensive atherosclerotic plaque in the distal vertebral and intracranial carotid arteries. -CTA head and neck CT/CT angio headneck* [id number] IMPRESSION: 1. 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 Reconstitutes in the supraclinoid carotid artery. 2. Increasing plaque and dilatation of the proximal LEFT ICA, dilated to 1.3 cm. High-grade stenosis proximal LEFT ICA with plaque and ulcerations. Stenosis greater than 70%. 3. LEFT ICA is nearly completely occluded at the skull base. Additional high- grade stenosis through the cavernous sinus. 4. Moderate stenosis distal RIGHT vertebral artery beyond the foramen magnum. 5. High-grade stenosis origin of the LEFT vertebral artery. Distal LEFT vertebral artery is completely occluded. 6. RIGHT MCA is patent due to an intact [place]. There is a significant stenosis involving the RIGHT A1 segment with the RIGHT MCA. RIGHT posterior communicating artery is still patent. 7. Paucity of vessels in the distal RIGHT MCA territory at the site of subacute infarct. This is beyond the M2 segment. Abrupt termination of the distal MCA artery best seen on the MIP imaging. 8. Very small caliber posterior cerebral arteries. 9. Irregular plaque with ulcerations involving the aortic arch. -cardiac echo CONCLUSIONS LV systolic function is normal with EF of 60 to 65%. Trace mitral regurgitation. Trace pulmonic regurgitation. No comparison studies are available -?On aspirin, statin, Plavix, IV fluids, permissive hypertension -Overall patient's clinical condition improved on discharge he has good left upper left lower extremity strength, I would see equal bilateral upper and lower extremities, he does have minimal left facial droop, intermittent word finding difficulty, no slurring of his words, no difficulty swallowing, -Discharged with outpatient physical therapy -Given his vascular findings as above, he might require intervention in the near future, referred to vascular surgery as outpatient -Patient was advised if he were to have any strokelike symptoms to immediately call 9 11 ? Follow-up with primary care as outpatient -Follow-up with neurology as outpatient Physical Exam Const: COMMON NORMALS: no acute distress and patient oriented x3 HENMT: OTHER: Slight left facial droop Resp: COMMON NORMALS: normal respiratory effort, No retractions, No use of accessory muscles and clear to auscultation bilaterally AUSCULTATION: clear to auscultation bilaterally Cardio: COMMON NORMALS: regular rate, regular rhythm, S1 normal heart sound present and S2 normal heart sound present RATE: regular rate RHYTHM: regular rhythm HEART SOUNDS: S1 normal heart sound present and S2 normal heart sound present GI: COMMON NORMALS: Normal to inspection, nondistended, normoactive bowel sounds present and non-tender Extremity: COMMON NORMALS: no pedal edema Neuro: COMMON NORMALS: patient oriented x3, CN's II-XII intact bilaterally, moves all extremities, no focal motor deficits and no sensory deficits noted Psych: COMMON NORMALS: mental status grossly normal Discharge Data Studies Completed and Pending Completed Studies During Hospitalization Category Date Time Status CT angio headneck* [id number] Stat Cat Scan 11/29/23 11:[address] head wo con* [id number] Stat Cat Scan 11/29/23 11:32 Completed XR chest 1V portable [id number] Stat Exams 11/29/23 11:32 Completed CV. echo complete* [id number] Routine Ultrasound 11/29/23 15:33 Completed Pending at discharge Category Date Time Status Basic Metabolic Panel AM LABS Lab 12/02/23 04:00 Ordered Basic Metabolic Panel AM LABS Lab 12/03/23 04:00 Ordered Complete Blood Count w/Auto AM LABS Lab 12/02/23 04:00 Ordered Complete Blood Count w/Auto AM LABS Lab 12/03/23 04:00 Ordered Radiology Impressions Chest X-Ray 11/29/23 11:32 IMPRESSION: 1. No acute cardiopulmonary finding. Head CT 11/29/23 11:32 IMPRESSION: 1. No acute intracranial hemorrhage or mass effect. 2. Probable subacute infarct RIGHT centrum semiovale/thompson radiata. 3. Extensive atherosclerotic plaque in the distal vertebral and intracranial carotid arteries. Head/Neck CTA 11/29/23 11:32 IMPRESSION: 1. 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 Reconstitutes in the supraclinoid carotid artery. 2. Increasing plaque and dilatation of the proximal LEFT ICA, dilated to 1.3 cm. High-grade stenosis proximal LEFT ICA with plaque and ulcerations. Stenosis greater than 70%. 3. LEFT ICA is nearly completely occluded at the skull base. Additional high- grade stenosis through the cavernous sinus. 4. Moderate stenosis distal RIGHT vertebral artery beyond the foramen magnum. 5. High-grade stenosis origin of the LEFT vertebral artery. Distal LEFT vertebral artery is completely occluded. 6. RIGHT MCA is patent due to an intact [place] of [place]. There is a significant stenosis involving the RIGHT A1 segment with the RIGHT MCA. RIGHT posterior communicating artery is still patent. 7. Paucity of vessels in the distal RIGHT MCA territory at the site of subacute infarct. This is beyond the M2 segment. Abrupt termination of the distal MCA artery best seen on the MIP imaging. 8. Very small caliber posterior cerebral arteries. 9. Irregular plaque with ulcerations involving the aortic arch. Laboratory Results WBC 6.95 10^3/uL (3.29-11.43) 12/01/23 04:40 RBC 4.64 10^6/uL (3.85-5.65) 12/01/23 04:40 Hgb 13.50 g/dL (11.27-16.99) 12/01/23 04:40 Hct 40.5 % (37-53) 12/01/23 04:40 MCV 87.3 fl (82-101) 12/01/23 04:40 MCH 29.1 pg (27-33) 12/01/23 04:40 MCHC 33.3 g/dL (30-55) 12/01/23 04:40 RDW 13.8 % (12.1-15.1) 12/01/23 04:40 Plt Count 169 10^3/cmm (157-399) 12/01/23 04:40 MPV 10.7 fL (7.4-10.4) H 12/01/23 04:40 Neut % (Auto) 54.9 % 12/01/23 04:40 Lymph % (Auto) 34.0 % 12/01/23 04:40 [place] % (Auto) 8.1 % 12/01/23 04:40 Eos % (Auto) 2.3 % 12/01/23 04:40 Baso % (Auto) 0.4 % 12/01/23 04:40 Neut # (Auto) 3.82 10^3/uL (1.8-7.7) 12/01/23 04:40 Lymph # (Auto) 2.4 10^3/uL (0.8-4.8) 12/01/23 04:40 [place] # (Auto) 0.6 10^3/uL (0.2-0.9) 12/01/23 04:40 Eos # (Auto) 0.2 10^3/uL (0.0-0.8) 12/01/23 04:40 Baso # (Auto) 0.0 10^3/uL (0.0-0.1) 12/01/23 04:40 Nucleated RBC % (auto) 0 % 12/01/23 04:40 Nucleated RBCs # 0.0 /100WBC 12/01/23 04:40 PT 14.00 SECONDS (12.1-14.9) 11/29/23 12:04 INR 1.04 (0.8-1.2) 11/29/23 12:04 Sodium 137 mmol/L (136-145) 12/01/23 04:40 Potassium 3.9 mmol/L (3.5-5.1) 12/01/23 04:40 Chloride 105 mmol/L (98-107) 12/01/23 04:40 Carbon Dioxide 25 mmol/L (22-29) 12/01/23 04:40 Anion Gap 10.9 (5-19) 12/01/23 04:40 BUN 19 mg/dL (8-23) 12/01/23 04:40 Creatinine 0.9 mg/dL (0.7-1.2) 12/01/23 04:40 GFR Calculation 85.2 mL/min (90-130) L 12/01/23 04:40 Glucose 211 mg/dL (65-115) H 12/01/23 04:40 POC Glucose 147 mg/dL (70-110) H 12/01/23 10:42 Estimat Average Glucose 192 11/30/23 04:18 Hemoglobin A1c 8.3 % (4.0-6.0) H 11/30/23 04:18 Calculated Osmolality 293 mOsm/kg (285-295) 12/01/23 04:40 Calcium 7.8 mg/dL (8.5-10.5) L 12/01/23 04:40 Total Bilirubin 0.4 mg/dL (0.15-1.2) 11/29/23 12:04 AST 11 U/L (0-40) 11/29/23 12:04 ALT 13 U/L (0-41) 11/29/23 12:04 Alkaline Phosphatase 67 U/L (40-130) 11/29/23 12:04 Total Protein 7.3 g/dL (6.6-8.7) 11/29/23 12:04 Albumin 4.1 g/dL (3.5-5.2) 11/29/23 12:04 Globulin 3.2 g/dL (1.3-4.6) 11/29/23 12:04 Triglycerides 248 mg/dL (0-150) H 11/30/23 04:18 Cholesterol 245 mg/dL (0-200) H 11/30/23 04:18 LDL Cholesterol, Calc 168 mg/dL (50-129) H 11/30/23 04:18 HDL Cholesterol 27 mg/dL (60-100) L 11/30/23 04:18 LDL/HDL Ratio 6.22 RATIO (0.00-3.22) H 11/30/23 04:18 Cholesterol/HDL Ratio 9.07 mg/dL (1.0-5.00) H 11/30/23 04:18 Urine Color Yellow (Yellow) 11/29/23 14:28 Urine Appearance Clear (CLEAR) 11/29/23 14:28 Urine pH 7.0 (5-7) 11/29/23 14:28 Ur Specific [place] 1.063 (1.005-1.030) H 11/29/23 14:28 Urine Protein Negative (Negative) 11/29/23 14:28 Urine Glucose (UA) 2+ (Normal) H 11/29/23 14:28 Urine Ketones Negative (Negative) 11/29/23 14:28 Urine Blood Negative (Negative) 11/29/23 14:28 Urine Nitrate Negative (Negative) 11/29/23 14:28 Urine Bilirubin Negative (Negative) 11/29/23 14:28 Urine Urobilinogen 1.0 mg/dL (Negative) 11/29/23 14:28 Ur Leukocyte Esterase Negative (Negative) 11/29/23 14:28 Urine RBC 0-2 /hpf (0-2) 11/29/23 14:28 Urine WBC 0-5 /hpf (0-5) 11/29/23 14:28 Ur Squamous Epith Cells 0-5 /hpf (0-5) 11/29/23 14:28 Amorphous Sediment Not Reportable 11/29/23 14:28 Urine Bacteria None seen /hpf (NONE) 11/29/23 14:28 Hyaline Casts 1.21 /lpf 11/29/23 14:28 Urine Opiates Screen Negative ng/mL (Negative) 11/29/23 14:28 Ur Barbiturates Screen Negative ng/mL (Negative) 11/29/23 14:28 Ur Phencyclidine Scrn Negative ng/mL (Negative) 11/29/23 14:28 Ur Amphetamines Screen Negative ng/mL (Negative) 11/29/23 14:28 U Benzodiazepines Scrn Negative ng/mL (Negative) 11/29/23 14:28 Urine Cocaine Screen Negative ng/mL (Negative) 11/29/23 14:28 U Marijuana (THC) Screen Negative ng/mL (Negative) 11/29/23 14:28 Vitals Last Vital Signs Temp 98.4 F 12/01/23 07:15 Pulse 60 12/01/23 07:15 Resp 16 12/01/23 11:00 BP 154/82 12/01/23 07:15 Pulse Ox 96 12/01/23 07:15 O2 Del Method Room Air 12/01/23 07:15 Discharge Plan Discharge Patient Disposition: Home Condition: Stable Prescriptions: New aspirin 81 mg Tablet,Delayed Release (Dr/Ec) 81 mg PO DAILY 210 Days Qty: 30 0RF atorvastatin 40 mg Tablet 40 mg PO BEDTIME 30 Days Qty: 30 0RF clopidogrel 75 mg Tablet 75 mg PO DAILY 20 Days Qty: 20 0RF amlodipine [Norvasc] 5 mg tablet 5 mg PO DAILY 30 Days Qty: 30 0RF Continued pregabalin 100 mg capsule 100 mg PO BID 30 Days Qty: 60 5RF baclofen 10 mg tablet 10 mg PO .at bedtime PRN (Reason: muscle cramps) 30 Days Qty: 30 6RF metformin 500 mg tablet extended release 24 hr 1,500 mg PO DAILY 90 Days Qty: 270 2RF alcohol swabs Pads, Medicated 1 pad topical TID PRN (Reason: as needed to check blood sugar) 30 Days Qty: 100 11RF oxycodone-acetaminophen 5-325 mg tablet 1 tab PO DAILY PRN (Reason: pain) 30 Days Qty: 30 0RF Changed insulin glargine [Lantus Solostar U-100 Insulin] 100 unit/mL (3 mL) insulin pe n 30 unit SUBCUT DAILY 30 Days Qty: 15 6RF Rx Instructions: 340B insulin aspart U-100 [Novolog FlexPen U-100 Insulin] 100 unit/mL (3 mL) insulin pen See Rx Instructions .ROUTE .COMPLEX Qty: 15 6RF Rx Instructions: Inject subcut, 3 times daily, after meals, based on sliding scale provided Discontinued diclofenac sodium 75 mg tablet,delayed release (DR/EC) 75 mg PO BID PRN (Reason: pain) 30 Days Qty: 60 6RF Rx Instructions: WITH FOOD; do not take with IBU/ALEVE glipizide 10 mg tablet extended release 24hr 10 mg PO DAILY 90 Days Qty: 90 2RF No Action (DME) insulin syringe-needle U-100 [BD Insulin Syringe] 0.5 mL 29 gauge x 1/2 syringe See Rx Instructions .Route Qty: 100 5RF Rx Instructions: Use with insulin twice daily (DME) blood-glucose meter [Blood Glucose Monitoring] Kit See Rx Instructions .ROUTE .MEDSUPPLY Qty: 1 0RF Rx Instructions: Brand/type per insurance coverage (DME) lancets [Accu-Chek Softclix Lancets] Misc See Rx Instructions .ROUTE .COMPLEX Qty: 100 11RF Dose Instruction: USE TO TEST BLOOD GLUCOSE TWICE A DAY Rx Instructions: USE TO TEST BLOOD GLUCOSE TWICE A DAY (DME) Accu-Chek Guide test strips Strip See Rx Instructions .ROUTE .COMPLEX Qty: 50 11RF Dose Instruction: USE TO TEST BLOOD GLUCOSE TWICE A DAY Rx Instructions: USE TO TEST BLOOD GLUCOSE TWICE A DAY (DME) pen needle, diabetic [TechLITE Pen Needle] 32 gauge x 1/4 needle See Rx Instructions .ROUTE .COMPLEX Qty: 100 2RF Dose Instruction: USE WITH INSULIN PEN TO ADMINISTER INSULIN DIRECTED BY DOCTOR TWICE DAILY Rx Instructions: USE WITH INSULIN PEN TO ADMINISTER INSULIN DIRECTED BY DOCTOR TWICE DAILY (DME) BD Ultra-Fine Birgit Pen Needle 32 gauge x 5/32 needle MISCELLANEOUS Discharge Orders: Discharge Order (Routine); Ordered 12/01/23 Ordered By: Gilbert Simeon Other Ambulatory Orders: DME: Walker (Order) Location: None Selected Ordered By: Gilbert Simeon Occupational Therapy Eval and Treat Outpatient (Order) Timeframe: 2 Weeks Facility: [facility] - Location: Occupational Therapy [facility] Ordered By: Nicole Horn Physical Therapy Eval and Treat Outpatient (Order) Timeframe: 2 Weeks Facility: [facility] - Location: Physical Therapy [facility] Ordered By: Nicole Horn Speech Language Pathology Eval and Treat Outpatient (Order) Timeframe: 2 Weeks Facility: [facility] - Location: Speech Therapy [facility] Ordered By: Nicole Horn Referrals: Maria Antonia Hopper MD [Physician] - 2 weeks (Dr Horn spoke to Dr Hopper while Mr Denilson was in the hospital. She is aware of need for follow up We have notified your physician's clinic of the need for a follow-up appointment to be scheduled. If you have not heard from them within the next 2 business days, please call them directly. ) Alexys Hawley MD [Referring] - 1 month (cva, carotid stneosis) Gale Ocasio MD [Primary Care Provider] - 12/06/23 11:00 am Discharge Diet: Cardiac Discharge Activity: Resume usual activity Patient Instructions: Altered Mental Status (ED), Stroke (DC), Opioid Safety Activity Restrictions/Additional Instructions: APPOINTMENT FOR HEART MONITOR FOR WednesdayNOV 30 AT 1:15 -- If you have any recurrent strokelike symptoms please go to the emergency room -Please take aspirin, statin, Plavix as prescribed -Please monitor blood sugar closely -Follow-up with neurology -Follow-up with vascular surgery -Please monitor your blood sugars closely -Monitor your blood sugars 3 times daily as after meals -Please record your blood sugars, and a blood sugar log -For your NovoLog -Please inject blood sugar after meals based on sliding scale provided -Do not inject insulin if you do not eat as hypoglycemia kills -This is a NovoLog sliding scale -Insulin sliding fingerstick Insulin 141-180 0 units/sq 181-220 2 units/sq 221-260 4 units/sq 261-300 6 units/sq 301-350 8 units/sq 351-400 10 units/sq 401-450 12 units/sq >450 14units/sq -If your blood sugar is greater than 500 go to the emergency room -If your blood sugar is less than 60 or at anytime you feel lightheaded or dizzy or diaphoretic or have chest palpitations check your blood sugar, and eat a hard candy or drink orange juice and go immediately to the emergency room -Remember hypoglycemia kills, so if his blood sugar is less than 60 we have to increase it by taking in a sugary meal such as a hard candy or orange juice and go to the emergency room -If you have any questions please call us where here to help Discharge Attestations Time Spent in Discharge Care*: greater than 30 min Quality Metrics Clinical Quality Measures [ Cerebrovascular Accident { Contraindication to Antithrombotic: None; antithrombotic prescribed; Contraindication to Anticoagulation: Overlap treatment not indicated; Contraindication to Statin: None; Statin prescribed;}. No reported AMI, CVA or VTE this stay] Coding Level of Care Code 55106 Total time (in minutes) for Discharge: 45 Diagnoses Cerebrovascular accident (CVA) due to thrombosis of right middle cerebral artery I63.311 CVA mechanism: thrombosis Laterality of affected vessel: right Precerebral and cerebral artery: middle cerebral artery Primary hypertension I10 Hypertension type: primary hypertension Mixed hyperlipidemia E78.2 Hyperlipidemia type: mixed hyperlipidemia Type 2 diabetes mellitus with diabetic polyneuropathy, without long-term current use of insulin E11.42 Diabetes mellitus complication detail: with polyneuropathy Diabetes mellitus complication status: with neurologic complications Diabetes mellitus 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 transplanted heart: [place] heart Stage 2 chronic kidney disease N18.2 Chronic kidney disease stage: stage 2 (mild) Gastroesophageal reflux disease without esophagitis K21.9 Esophagitis presence: without esophagitis Chronic neck pain M54.2; G89.29
--- NOTE | 2023-12-01 11:17 | CT_ITS ---
WS: [id number] CT HEAD NONCONTRAST HISTORY: fall TECHNIQUE: Contiguous axial imaging performed through the brain in 2.5 mm imaging. Bone and soft tiss ue windows. Sagittal and coronal reformats reviewed. All CT scans at [facility] use at least one of these dose optimization techniques: automated exposure control; mA and/or kV adjustment per pa tient size (includes targeted exams where dose is matched to clinical indication); or iterative recon struction. DLP: 1145.08 mGy.cm COMPARISON: 11/29/2023 No acute intracranial hemorrhage, midline shift or mass effect. Mild atrophy and small vessel disease. RIGHT thompson radiata and centrum semiovale infarct is similar to the prior study. A subtle area of decreased attenuation involving the posterior corpus callosum on the RIGHT. This may be volume averaging or subacute infarct associated with the infarct described in the RIGHT thompson radiata. Attenuation may have been present on the prior study but better seen today . Ventricles: Normal size with no hydrocephalus. Extensive atherosclerotic plaque in the distal vertebral and intracranial carotid arteries. Paranasal sinuses: As visualized are clear. Mastoid air cells: Well pneumatized. Calvarium and scalp: Skull is intact with no soft tissue edema or swelling. CT/CT head wo con* [id number] IMPRESSION: 1. No acute intracranial hemorrhage or edema. 2. Subacute infarct in the RIGHT thompson and centrum semiovale. Additional subt le area of decreased attenuation extending to the posterior RIGHT corpus callos um. Probably part of the original infarct but better visualized today.
--- NOTE | 2023-12-01 11:24 | PC.OT ---
OT TREATMENT ATTEMPTED; PATIENT HAS JSUT FINISHED WITH S.T. AND STATES THAT HE IS DISCHARGING TODAY AND DOES NOT WISH TO COMPLETE ADLs AT THIS TIME; HE REPORTS THAT HE WILL DO THEM WHEN HE GETS HOME.
[2023-12-01 11:57] VITALS: BP 192/103; PULSE 70; RESP 16; TEMP 36.4; O2SAT 95
[2023-12-01 12:49] VITALS: BP 192/103; PULSE 70; RESP 16; TEMP 36.4; O2SAT 95
== END 2023-12-01 12:49 | disposition home or self-care (01) ==
LOC: ER 13:38 → MEDSURG 15:16
PROVIDERS: Admitting Provider Hospitalist; Emergency Provider Emergency Medicine; PCP Family Medicine; Visit Provider Family Medicine
DX: I63.311 Cerebral infarction due to thrombosis of right middle cerebral artery (principal); R29.810 Facial weakness; M54.2 Cervicalgia; R47.81 Slurred speech; Z79.899 Other long term (current) drug therapy; Z79.4 Long term (current) use of insulin; I25.10 Atherosclerotic heart disease of native coronary artery without angina pectoris; G25.81 Restless legs syndrome; K21.9 Gastro-esophageal reflux disease without esophagitis; G40.909 Epilepsy, unspecified, not intractable, without status epilepticus; E11.22 Type 2 diabetes mellitus with diabetic chronic kidney disease; I12.9 Hypertensive chronic kidney disease with stage 1 through stage 4 chronic kidney disease, or unspecified chronic kidney disease; Z95.5 Presence of coronary angioplasty implant and graft; Z87.891 Personal history of nicotine dependence; R27.0 Ataxia, unspecified; E78.2 Mixed hyperlipidemia; E11.65 Type 2 diabetes mellitus with hyperglycemia; E11.42 Type 2 diabetes mellitus with diabetic polyneuropathy; N18.2 Chronic kidney disease, stage 2 (mild); G89.29 Other chronic pain
CPT/HCPCS: 36415; 36416; 70450; 70496; 70498; 71045; 80048; 80053; 80061; 80306; 81001; 82962; 83036; 85025; 85610; 92523; 92526; 92610; 93005; 93306; 96372; 97110; 97161; 97165; 99285; G0378; J1650; J1815; J7030

== ENCOUNTER → 2023-12-22 14:45 | Outpatient (BNVA) | payer MEDICARE, SELFPAY | PROVIDERS: PCP Family Medicine; Referring Provider Family Medicine; Visit Provider Specialist | DX: I65.22 Occlusion and stenosis of left carotid artery (principal); I65.21 Occlusion and stenosis of right carotid artery; E11.42 Type 2 diabetes mellitus with diabetic polyneuropathy; I10 Essential (primary) hypertension; I25.10 Atherosclerotic heart disease of native coronary artery without angina pectoris; N18.2 Chronic kidney disease, stage 2 (mild) | CPT/HCPCS: 99203 ==

== ENCOUNTER 2024-05-15 10:11 | Emergency (ER) | payer MEDICARE, SELFPAY ==
[2024-05-15 10:15] VITALS: BP 124/76; PULSE 71; TEMP 36.5; O2SAT 98; BMI 28.7
--- NOTE | 2024-05-15 10:28 | XRR_ITS ---
PROCEDURE INFORMATION: Exam: XR Chest Exam date and time: 05/15/2024 10:54 AM Age: 64 years old Clinical indication: Shortness of breath; Additional info: Hemoptysis TECHNIQUE: Imaging protocol: Radiologic exam of the chest. Views: 1 view. COMPARISON: CR XR chest 1V portable [id number] 11/29/2023 11:42 AM FINDINGS: Lungs: Lungs are mildly hyperinflated, with upper lung oligemia, suggestive of emphysematous change. Hazy opacity in the medial right lower lung, suspicious for infectious or inflammatory etiology. Recommend CT for complete evaluation. Pleural spaces: Unremarkable. No pleural effusion. No pneumothorax. Heart/Mediastinum: Unremarkable. No cardiomegaly. Bones/joints: Unremarkable. XR/XR chest 1V portable [id number] IMPRESSION: 1. Hazy opacity in the medial right lower lung, suspicious for infectious or inflammatory etiology. Recommend CT for complete evaluation. 2. Lungs are mildly hyperinflated, with upper lung oligemia, suggestive of emphysematous change.
--- NOTE | 2024-05-15 10:28 | W.ED.GENADLT ---
HPI - General Adult General: Chief complaint: Nausea/Vomiting/Diarrhea Stated complaint: vomitting blood Time Seen by Provider: 05/15/24 10:12 Source: patient and family Mode of arrival: ambulatory Limitations: no limitations History of Present Illness: Patient is a 64-year-old female presents to ED today along with family for episodes of hemoptysis this morning. Patient states after he awoke this morning he began coughing and after a few episodes of coughing he noticed some bright red blood in his sputum. Patient has not been ill recently. Upon arrival he is completely asymptomatic. He is not having any chest pain, shortness of breath, or difficulty breathing. He is a previous smoker-quit approximately a year ago. No diagnosed history of COPD. He has not had any episodes of hematemesis. No abdominal pain. Onset (ago): hour(s) Severity: mild Relieving factors: none Exacerbating factors: none Associated symptoms: Deny chest pain, dyspnea, headache(s), malaise, nausea, rash or vomiting Treatments prior to arrival: none Related Data Home Medications ?Medication ?Instructions ?Recorded ?Confirmed oxycodone 15 mg tablet 15 mg PO TID PRN Pain 01/17/24 05/15/24 insulin glargine 100 unit/mL (3 35 unit SUBCUT QAM 05/15/24 05/15/24 mL) subcutaneous pen (Lantus Solostar U-100 Insulin) insulin lispro 100 unit/mL See Rx Instructions .Route .COMPLEX 05/15/24 05/15/24 subcutaneous pen metformin 500 mg tablet,extended 500 mg PO QAM 05/15/24 05/15/24 release 24 hr Previous Rx's ?Medication ?Instructions ?Recorded blood-glucose meter (Blood Glucose #1 ea 04/14/22 Monitoring kit) insulin syringe-needle U-100 0.5 #100 ea 07/14/23 mL 29 gauge x 1/2 (BD Insulin Syringe) lancets (Accu-Chek Softclix #100 ea 08/28/23 Lancets) aspirin 81 mg chewable tablet 81 mg PO DAILY 90 days #90 tabs 12/06/23 blood sugar diagnostic (Accu-Chek #50 strips 01/06/24 Guide test strips) pen needle, diabetic 32 gauge x #100 ea 02/15/24 1/ (TechLITE Pen Needle) amlodipine 5 mg tablet (Norvasc) 5 mg PO DAILY 90 days #90 tabs 03/20/24 atorvastatin 40 mg tablet 40 mg PO BEDTIME 90 days #90 tabs 03/20/24 clopidogrel 75 mg tablet 75 mg PO DAILY 90 days #90 tabs 03/20/24 tizanidine 2 mg tablet 2 mg PO TID PRN muscle spasticity 05/05/24 #30 tabs pen needle, diabetic 32 gauge x #100 ea 05/11/24 amoxicillin 875 mg-potassium 1 tab PO BID #14 tabs 05/15/24 clavulanate 125 mg tablet azithromycin 250 mg tablet See Rx Instructions PO .COMPLEX #6 05/15/24 tabs Allergies Allergy/AdvReac Type Severity Reaction Status Date / Time No Known Allergies Allergy Verified 05/15/24 10:19 Review of Systems Const: Denies: fever(s), chills, body aches, fatigue or malaise ENMT: Denies: throat pain, uvular edema, enlarged tonsils, odynophagia, mouth pain, oral sores, bleeding gums, nasal congestion or sinus pain Card: Denies: chest pain Resp: Reports: hemoptysis; Denies: dyspnea, wheezing, pain on inspiration or chest congestion GI: Denies: abdominal pain, nausea or vomiting Skin/Breast: Denies: rash Neuro: Denies: headache(s) PFSH ED PFSH: Medical History Cervical spondylolysis CAD (coronary artery disease) Erectile dysfunction history of injections, not on oral medications Chronic neck pain Chronic kidney disease Restless leg syndrome Diabetic neuropathy History of colon polyps GERD (gastroesophageal reflux disease) Hyperlipemia Type 2 diabetes mellitus Unable to afford [facility] Hypertension Hx of seizure disorder Fracture, scapula Fracture of third cervical vertebra Surgical History History of coronary artery stent placement (~2014) done in [facility] History of repair of hiatal hernia needs redone per on 11/29/2023 but has declined Hx of colonoscopy less than 10 years, polyps were found Hx of hernia repair bilateral Social History Smoking and tobacco/nicotine status: former use of tobacco/nicotine (Quit a year ago) Alcohol intake: former Substance/Drug Use: former Household members: spouse Marital status: Marital status details: Spouse with MS and partial paralysis service: Yes status: Retired branch: [employer] Physical Exam Const: COMMON NORMALS: no acute distress, average body habitus, patient oriented x3, no limitations, healthy appearing, alert and well nourished GENERAL APPEARANCE: cooperative ORIENTATION/CONSCIOUSNESS: Yes awake, Yes oriented to person, Yes oriented to place and Yes oriented to time HENMT: COMMON NORMALS: normocephalic and atraumatic HEAD & SCALP: normal to inspection, normocephalic and atraumatic FACE & SINUS: normal facial exam NOSE: Epistaxis present (no active epistaxis ) and Other nasal findings present (dried blood to bilateral nares; small amount of fresh blood L nare) MOUTH: Normal oral and palatal mucosa present and lip normal THROAT: posterior oropharynx normal and tonsils normal; no uvular edema Neck/C-Spine: GENERAL: Yes normal visual inspection Chest: COMMONS NORMALS: normal inspection of the chest and normal palpation of entire chest wall Resp: COMMON NORMALS: normal respiratory effort and clear to auscultation bilaterally AUSCULTATION: clear to auscultation bilaterally Cardio: COMMON NORMALS: regular rate and regular rhythm RATE: regular rate RHYTHM: regular rhythm GI: COMMON NORMALS: Normal to inspection, nondistended, normoactive bowel sounds present, Soft to palpation, non-tender, No hepatosplenomegaly present and no masses PALPATION: Yes Soft to palpation and Yes No hepatosplenomegaly present Extremity: GENERAL: Yes normal exam except as noted Neuro: COMMON NORMALS: patient oriented x3 SENSORIUM/ORIENTATION: Yes alert, Yes oriented to person, Yes oriented to place and Yes oriented to time Skin: COMMON NORMALS: no rashes or lesions noted GENERAL SKIN EXAM: no rashes or lesions noted Course Vital Signs: Vital signs: Vital Signs Temperature 97.7 F 05/15/24 10:15 Pulse Rate 71 05/15/24 10:15 Blood Pressure 124/76 05/15/24 10:15 Pulse Oximetry 98 05/15/24 10:15 Oxygen Delivery Me thod Room Air 05/15/24 10:15 [facility] - General Adult Medical Decision Making Patient clinically appears no acute distress. His vital signs are stable. He was found to have bilateral blood in his nares. Hemoptysis most likely originating here. Blood work is unremarkable. CXR, when compared to previous, showing opacity to his right lower field. He will be placed on antibiotics for CAP. Return to ED precautions discussed. Otherwise he can follow-up with primary care if needed. Medical Records I reviewed the patient's medical records. Lab Data I reviewed the patient's lab results. 05/15/24 10:27 05/15/24 10:27 Laboratory Results WBC 7.83 10^3/uL (3.29-11.43) 05/15/24 10:27 RBC 4.57 10^6/uL (3.85-5.65) 05/15/24 10:27 Hgb 12.90 g/dL (11.27-16.99) 05/15/24 10:27 Hct 39.7 % (37-53) 05/15/24 10:27 MCV 86.9 fl (82-101) 05/15/24 10:27 MCH 28.2 pg (27-33) 05/15/24 10:27 MCHC 32.5 g/dL (30-55) 05/15/24 10:27 RDW 15.2 % (12.1-15.1) H 05/15/24 10:27 Plt Count 196 10^3/cmm (157-399) 05/15/24 10:27 MPV 10.6 fL (7.4-10.4) H 05/15/24 10:27 Neut % (Auto) 69.2 % 05/15/24 10:27 Lymph % (Auto) 21.1 % 05/15/24 10:27 [place] % (Auto) 6.0 % 05/15/24 10:27 Eos % (Auto) 2.9 % 05/15/24 10:27 Baso % (Auto) 0.5 % 05/15/24 10:27 Neut # (Auto) 5.42 10^3/uL (1.8-7.7) 05/15/24 10:27 Lymph # (Auto) 1.7 10^3/uL (0.8-4.8) 05/15/24 10:27 [place] # (Auto) 0.5 10^3/uL (0.2-0.9) 05/15/24 10:27 Eos # (Auto) 0.2 10^3/uL (0.0-0.8) 05/15/24 10:27 Baso # (Auto) 0.0 10^3/uL (0.0-0.1) 05/15/24 10:27 Nucleated RBC % (auto) 0 % 05/15/24 10: Nucleated RBCs # 0.0 /100WBC 05/15/24 10: PT 14.20 SECONDS (12.1-14.9) 05/15/24 10:27 INR 1.03 (0.8-1.2) 05/15/24 10:27 APTT 29.4 SECONDS (23.9-36.7) 05/15/24 10:27 Sodium 139 mmol/L (136-145) 05/15/24 10: Potassium 4.1 mmol/L (3.5-5.1) 05/15/24 10: Chloride 104 mmol/L (98-107) 05/15/24 10: Carbon Dioxide 24 mmol/L (22-29) 05/15/24 10:27 Anion Gap 15.1 (5-19) 05/15/24 10:27 BUN 14 mg/dL (8-23) 05/15/24 10:27 Creatinine 1.0 mg/dL (0.7-1.2) 05/15/24 10:27 GFR Calculation 75.2 mL/min (90-130) L 05/15/24 10:27 Glucose 185 mg/dL (65-115) H 05/15/24 10:27 Calculated Osmolality 293 mOsm/kg (285-295) 05/15/24 10:27 Calcium 8.7 mg/dL (8.5-10.5) 05/15/24 10:27 Total Bilirubin 0.3 mg/dL (0.15-1.2) 05/15/24 10: AST 12 U/L (0-40) 05/15/24 10: ALT 15 U/L (0-41) 05/15/24 10:27 Alkaline Phosphatase 110 U/L (40-130) 05/15/24 10:27 Total Protein 7.2 g/dL (6.6-8.7) 05/15/24 10:27 Albumin 3.8 g/dL (3.5-5.2) 05/15/24 10:27 Globulin 3.4 g/dL (1.3-4.6) 05/15/24 10:27 Lipase 15 U/L (13-60) 05/15/24 10:27 XR interpretation done by ED provider, pending radiology final review Discharge Plan Discharge Patient Disposition: Home Clinical Impression: Hemoptysis, Pneumonia Condition: Stable Prescriptions: New azithromycin 250 mg tablet See Rx Instructions .ROUTE .COMPLEX Qty: 6 0RF Rx Instructions: take 500 mg today (day 1), then 250 mg for 4 days (days 2-5) amoxicillin-pot clavulanate 875-125 mg tablet 1 tab PO BID Qty: 14 0RF No Action (DME) insulin syringe-needle U-100 [BD Insulin Syringe] 0.5 mL 29 gauge x 1/2 syringe See Rx Instructions .Route Qty: 100 5RF Rx Instructions: Use with insulin twice daily (DME) blood-glucose meter [Blood Glucose Monitoring] Kit See Rx Instructions .ROUTE .MEDSUPPLY Qty: 1 0RF Rx Instructions: Brand/type per insurance coverage clopidogrel 75 mg tablet 75 mg PO DAILY 90 Days Qty: 90 2RF atorvastatin 40 mg tablet 40 mg PO BEDTIME 90 Days Qty: 90 3RF amlodipine [Norvasc] 5 mg tablet 5 mg PO DAILY 90 Days Qty: 90 2RF aspirin 81 mg tablet,chewable 81 mg PO DAILY 90 Days Qty: 90 3RF oxycodone 15 mg tablet 15 mg PO TID PRN (Reason: Pain) (DME) lancets [Accu-Chek Softclix Lancets] Misc See Rx Instructions .ROUTE .COMPLEX Qty: 100 11RF Dose Instruction: USE TO TEST BLOOD GLUCOSE TWICE A DAY Rx Instructions: USE TO TEST BLOOD GLUCOSE TWICE A DAY (DME) Accu-Chek Guide test strips Strip See Rx Instructions .ROUTE .COMPLEX Qty: 50 11RF Dose Instruction: USE TO TEST BLOOD GLUCOSE TWICE A DAY Rx Instructions: USE TO TEST BLOOD GLUCOSE THREE TIMES A DAY (DME) pen needle, diabetic [TechLITE Pen Needle] 32 gauge x 1/4 needle See Rx Instructions .ROUTE .COMPLEX Qty: 100 2RF Dose Instruction: USE WITH INSULIN PEN TO ADMINISTER INSULIN DIRECTED BY DOCTOR TWICE DAILY Rx Instructions: USE WITH INSULIN PEN TO ADMINISTER INSULIN DIRECTED BY DOCTOR TWICE DAILY tizanidine 2 mg tablet 2 mg PO TID PRN (Reason: muscle spasticity) Qty: 30 2RF (DME) pen needle, diabetic 32 gauge x 5/32 needle See Rx Instructions .ROUTE .COMPLEX Qty: 100 2RF Dose Instruction: USE with insulin pen TO administer insulin as directed by doctor; four times daily Rx Instructions: USE with insulin pen TO administer insulin as directed by doctor; four times daily metformin 500 mg tablet extended release 24 hr 500 mg PO QAM insulin lispro 100 unit/mL insulin pen See Rx Instructions .ROUTE .COMPLEX MDD 50 Rx Instructions: INJECT PER SLIDING SCALE DIRECTED. insulin glargine [Lantus Solostar U-100 Insulin] 100 unit/mL (3 mL) insulin pen 35 unit SUBCUT QAM Rx Instructions: 340B Discharge Orders: Discharge ED (Routine); Ordered 05/15/24 Ordered By: Moriah Greene Referrals: Gale Ocasio MD [Primary Care Provider] - Activity Restrictions/Additional Instructions: As we discussed, the small amount of blood in your sputum this morning most likely originated from your nose. Blood work here is unremarkable. Will place you on antibiotics based on your chest x-ray and the concern for pneumonia. You may follow-up with primary care later this week for any further concerns or not improving symptoms. Print Language: Slovak Coding Level of Care Code ED [employer] Port for Joey Gerard
[2024-05-15 10:37] LABS: Basophils % 0.5 %; Eosinophils # 0.2 10^3/uL (0.0-0.8); Eosinophils % 2.9 %; Hematocrit 39.7 % (37-53); Lymphocytes # 1.7 10^3/uL (0.8-4.8); Lymphocytes % 21.1 %; Mean Corpuscular HGB Conc 32.5 g/dL (30-55); Mean Corpuscular Hemoglobin 28.2 pg (27-33); Mean Corpuscular Volume 86.9 fl (82-101); Mean Platelet Volume 10.6 fL (7.4-10.4); Monocytes # 0.5 10^3/uL (0.2-0.9); Neutrophils # 5.42 10^3/uL (1.8-7.7); Neutrophils % 69.2 %; Nucleated Red Blood Cells % 0 %; Platelet Count 196 10^3/cmm (157-399); Red Blood Count 4.57 10^6/uL (3.85-5.65); Red Cell Distribution Width 15.2 % (12.1-15.1); White Blood Count 7.83 10^3/uL (3.29-11.43)
[2024-05-15 10:52] LABS: INR 1.03 (0.8-1.2)
[2024-05-15 10:53] LABS: Partial Thromboplastin Time 29.4 SECONDS (23.9-36.7)
[2024-05-15 10:59] LABS: Alanine Aminotransferase 15 U/L (0-41); Albumin Level 3.8 g/dL (3.5-5.2); Alkaline Phosphatase 110 U/L (40-130); Anion Gap 15.1 (5-19); Aspartate Amino Transferase 12 U/L (0-40); Blood Urea Nitrogen 14 mg/dL (8-23); Calcium 8.7 mg/dL (8.5-10.5); Carbon Dioxide 24 mmol/L (22-29); Chloride 104 mmol/L (98-107); Creatinine Clr Calc Pharmacy 84.5365; Globulin 3.4 g/dL (1.3-4.6); Glomerular Filtration Rate 75.2 mL/min (90-130); Glucose 185 mg/dL (65-115); Lipase 15 U/L (13-60); Osmolality Calculated 293 mOsm/kg (285-295); Potassium 4.1 mmol/L (3.5-5.1); Sodium 139 mmol/L (136-145); Total Bilirubin 0.3 mg/dL (0.15-1.2); Total Protein 7.2 g/dL (6.6-8.7)
[2024-05-15 11:35] VITALS: BP 157/83; PULSE 62; O2SAT 97
== END 2024-05-15 11:36 | disposition home or self-care (01) ==
PROVIDERS: Emergency Provider Physician Assistant; PCP Family Medicine
DX: R04.2 Hemoptysis (principal); J18.9 Pneumonia, unspecified organism; Z79.4 Long term (current) use of insulin; Z79.02 Long term (current) use of antithrombotics/antiplatelets; Z79.82 Long term (current) use of aspirin; Z79.84 Long term (current) use of oral hypoglycemic drugs; Z87.891 Personal history of nicotine dependence; E11.9 Type 2 diabetes mellitus without complications; E78.5 Hyperlipidemia, unspecified; I10 Essential (primary) hypertension; I25.10 Atherosclerotic heart disease of native coronary artery without angina pectoris
CPT/HCPCS: 36415; 71045; 80053; 83690; 85025; 85610; 85730; 99284